=== PATIENT | female | born 1935 | race African-American/Black ===

== ENCOUNTER 2018-02-16 10:20 | Inpatient (IN) | payer MEDICARE, OTHER ==
[~2018-02-16] VITALS: Ht 167.6 cm; Wt 69.6 kg
[~2018-02-16 10:20] MED LIST: AMLO5TAB4 PO; AP25 PO; ATEN100T; CLON0.1T PO; DOC Q LACE; FOLI-43; GABA-290 PO; GABA-529 PO; LOSA50TA3 PO; METH2.5T PO; METH500T PO; POTA10CA42 PO; PROT40 PO; ZET10 PO
[2018-02-16] MEDS ORDERED: NITROGLYCERIN OINT 1GM/INCH UDPKT TD ONE (11:00)
[2018-02-16 11:55] LABS: BASOPHILS % 0.3 % (0.0-2.0); EOSINOPHILS % 0.1 % (0.0-5.0); HEMATOCRIT. 36.2 % (36.0-48.0); HEMOGLOBIN. 11.4 g/dL (12.0-16.0); LYMPHOCYTES % 23.2 % (20.0-50.0); MEAN CORPUSCULAR HEMOGLOBIN 27.2 pg (28.0-32.0); MEAN CORPUSCULAR VOLUME 86.3 fL (81.0-99.0); MEAN PLATELET VOLUME 7.7 fl (7.4-10.4); MONOCYTES % 4.6 % (2.0-8.0); NEUTROPHILS % 71.8 % (40.0-76.0); PLATELET 364 x1000/uL (130-400); RED BLOOD CELL COUNT 4.19 mill/uL (4.2-5.4); RED CELL DISTRIBUTION WIDTH 20.2 % (11.6-14.6)
[2018-02-16 11:58] LABS: PROTHROMBIN TIME 10.4 sec (9.1-11.1)
[2018-02-16 12:02] LABS: CHLORIDE 100 mEq/L (98-107)
[2018-02-16] MEDS ORDERED: CLONIDINE 0.1MG TABLET PO PRN ×2 (13:00→14:00)
[2018-02-16] MEDS ORDERED: ACETAMINOPHEN 325MG TABLET PO ONE (13:15)
[2018-02-16 13:25] LABS: CREATINE KINASE MB FRACTION 2.9 ng/mL (0.5-3.6)
[2018-02-16] MEDS: LOSARTAN POTASSIUM 100 MG TABLET PO SCH (14:07)
[2018-02-16] MEDS: MORPHINE SULFATE 4 MG/ML CPJ (NOT FOR IM USE) IV PRN (15:41)
[2018-02-16] MEDS ORDERED: CLONIDINE 0.2MG TABLET PO PRN (17:15)
[2018-02-16] MEDS: HYDROCODONE/ACETAMINOPHEN 5/325MG TABLET PO PRN (17:25)
[2018-02-16] MEDS ORDERED: HYDRALAZINE 20MG/ML VIAL IV PRN (17:30)
[2018-02-16 20:00] VITALS: BP_SYST 137; BP_SYST 169; BP_DIAS 55; BP_DIAS 88
[2018-02-16] MEDS: NITROGLYCERIN OINT 1GM/INCH UDPKT TD SCH (21:46)
[2018-02-16] MEDS: AMLODIPINE 5MG TABLET PO SCH (21:47)
[2018-02-17] VITALS: BP 130/62
[2018-02-17] MEDS: HYDROCODONE/ACETAMINOPHEN 5/325MG TABLET PO PRN ×4 (00:40→21:07)
[2018-02-17] MEDS: NITROGLYCERIN OINT 1GM/INCH UDPKT TD SCH ×3 (05:23→21:05)
[2018-02-17 06:00] VITALS: BP 90/51
[2018-02-17 06:56] LABS: BASOPHILS % 0.8 % (0.0-2.0); EOSINOPHILS % 0.3 % (0.0-5.0); HEMATOCRIT. 33.8 % (36.0-48.0); HEMOGLOBIN. 10.9 g/dL (12.0-16.0); MEAN CORPUSCULAR HEMOGLOBIN 27.7 pg (28.0-32.0); MEAN PLATELET VOLUME 7.8 fl (7.4-10.4); MONOCYTES % 5.6 % (2.0-8.0); NEUTROPHILS % 66.3 % (40.0-76.0); PLATELET 359 x1000/uL (130-400); RED BLOOD CELL COUNT 3.93 mill/uL (4.2-5.4); RED CELL DISTRIBUTION WIDTH 19.8 % (11.6-14.6)
[2018-02-17 07:06] LABS: CHLORIDE 100 mEq/L (98-107)
[2018-02-17 07:17] LABS: CREATINE KINASE 61 IU/L (26-192); CREATINE KINASE MB FRACTION 2.3 ng/mL (0.5-3.6); HDL CHOLESTEROL 64 mg/dL (40-59); LDL CHOLESTEROL 98 mg/dL (5-100)
[2018-02-17 08:00] VITALS: BP 178/91
[2018-02-17] MEDS ORDERED: FUROSEMIDE 40MG/4ML VIAL IVP SCH (09:00)
[2018-02-17] MEDS: LOSARTAN POTASSIUM 100 MG TABLET PO SCH (10:11)
[2018-02-17] MEDS: AMLODIPINE 5MG TABLET PO SCH ×2 (10:11→21:07)
[2018-02-17] MEDS: MORPHINE SULFATE 4 MG/ML CPJ (NOT FOR IM USE) IV PRN (11:36)
[2018-02-17 12:00] VITALS: BP 145/73
[2018-02-17] MEDS ORDERED: SUMATRIPTAN SUCCINATE 6MG/0.5ML VIAL SUBCUT NR (14:00)
[2018-02-17] MEDS ORDERED: MORPHINE SULFATE 4 MG/ML CPJ (NOT FOR IM USE) IV PRN (14:30)
[2018-02-17] MEDS: HYDRALAZINE HCL 50MG TABLET PO SCH ×2 (14:38→21:06)
[2018-02-17 16:00] VITALS: BP 133/66
[2018-02-17] MEDS: FUROSEMIDE 40MG/4ML VIAL IVP SCH (17:34)
[2018-02-17 20:00] VITALS: BP 117/58
[2018-02-17] MEDS: GABAPENTIN 300MG CAPSULE PO SCH (21:10)
[2018-02-18] VITALS (8 sets, daily range): BP systolic 96–118; BP diastolic 51–74
[2018-02-18] MEDS: HYDRALAZINE HCL 50MG TABLET PO SCH ×3 (05:24→20:14)
[2018-02-18] MEDS: FUROSEMIDE 40MG/4ML VIAL IVP SCH ×2 (05:24→17:49)
[2018-02-18] MEDS: NITROGLYCERIN OINT 1GM/INCH UDPKT TD SCH ×3 (05:24→20:14)
[2018-02-18] MEDS: GABAPENTIN 300MG CAPSULE PO SCH ×3 (05:30→20:14)
[2018-02-18] MEDS: ACETAMINOPHEN 325MG TABLET PO PRN (05:41)
[2018-02-18 07:49] LABS: BASOPHILS % 0.5 % (0.0-2.0); EOSINOPHILS % 0.1 % (0.0-5.0); HEMATOCRIT. 37.8 % (36.0-48.0); HEMOGLOBIN. 12.2 g/dL (12.0-16.0); LYMPHOCYTES % 18.4 % (20.0-50.0); MEAN CORPUSCULAR HEMOGLOBIN 27.3 pg (28.0-32.0); MEAN PLATELET VOLUME 7.5 fl (7.4-10.4); MONOCYTES % 8.2 % (2.0-8.0); NEUTROPHILS % 72.8 % (40.0-76.0); PLATELET 428 x1000/uL (130-400); RED BLOOD CELL COUNT 4.45 mill/uL (4.2-5.4)
[2018-02-18 07:59] LABS: CHLORIDE 96 mEq/L (98-107)
[2018-02-18] MEDS: LOSARTAN POTASSIUM 100 MG TABLET PO SCH (08:21)
[2018-02-18] MEDS: AMLODIPINE 5MG TABLET PO SCH ×2 (08:21→20:14)
[2018-02-18] MEDS: HYDROCODONE/ACETAMINOPHEN 5/325MG TABLET PO PRN (10:18)
[2018-02-18] MEDS ORDERED: POTASSIUM CHLORIDE 20MEQ TABLET SR PO NR (12:00)
[2018-02-18] MEDS ORDERED: MAGNESIUM 1 G PREMIX 100 ML IV NR (13:00)
[2018-02-19] VITALS (8 sets, daily range): BP systolic 90–152; BP diastolic 44–76
[2018-02-19] MEDS: GABAPENTIN 300MG CAPSULE PO SCH ×3 (05:19→21:32)
[2018-02-19] MEDS: HYDRALAZINE HCL 50MG TABLET PO SCH ×3 (05:20→21:30)
[2018-02-19] MEDS: ACETAMINOPHEN 325MG TABLET PO PRN ×2 (05:20→11:46)
[2018-02-19] MEDS: NITROGLYCERIN OINT 1GM/INCH UDPKT TD SCH ×3 (05:21→21:30)
[2018-02-19] MEDS: FUROSEMIDE 40MG/4ML VIAL IVP SCH ×2 (05:23→16:52)
[2018-02-19 07:56] LABS: BASOPHILS % 0.4 % (0.0-2.0); EOSINOPHILS % 0.3 % (0.0-5.0); HEMATOCRIT. 37.1 % (36.0-48.0); HEMOGLOBIN. 12.3 g/dL (12.0-16.0); LYMPHOCYTES % 19.8 % (20.0-50.0); MEAN CORPUSCULAR VOLUME 84.7 fL (81.0-99.0); MEAN PLATELET VOLUME 7.6 fl (7.4-10.4); MONOCYTES % 9.5 % (2.0-8.0); PLATELET 433 x1000/uL (130-400); RED BLOOD CELL COUNT 4.38 mill/uL (4.2-5.4); RED CELL DISTRIBUTION WIDTH 20.1 % (11.6-14.6)
[2018-02-19] MEDS: LOSARTAN POTASSIUM 100 MG TABLET PO SCH (08:29)
[2018-02-19] MEDS: AMLODIPINE 5MG TABLET PO SCH ×2 (08:29→21:29)
[2018-02-19 08:56] LABS: CHLORIDE 97 mEq/L (98-107)
[2018-02-19] MEDS: HYDROCODONE/ACETAMINOPHEN 5/325MG TABLET PO PRN ×2 (16:13→21:29)
[2018-02-19] MEDS ORDERED: CELECOXIB 200MG CAPSULE PO NR (17:00)
[2018-02-20] VITALS: BP 116/59
[2018-02-20] MEDS: HYDROCODONE/ACETAMINOPHEN 5/325MG TABLET PO PRN ×2 (02:43→10:24)
[2018-02-20 04:00] VITALS: BP 107/45
[2018-02-20] MEDS: NITROGLYCERIN OINT 1GM/INCH UDPKT TD SCH ×2 (05:23→14:00)
[2018-02-20] MEDS: HYDRALAZINE HCL 50MG TABLET PO SCH ×2 (05:23→14:00)
[2018-02-20] MEDS: GABAPENTIN 300MG CAPSULE PO SCH ×2 (06:21→14:00)
[2018-02-20] MEDS: FUROSEMIDE 40MG/4ML VIAL IVP SCH ×2 (06:55→17:15)
[2018-02-20 07:55] LABS: CHLORIDE 96 mEq/L (98-107)
[2018-02-20 08:00] VITALS: BP 110/60
[2018-02-20] MEDS: AMLODIPINE 5MG TABLET PO SCH (08:32)
[2018-02-20] MEDS: LOSARTAN POTASSIUM 100 MG TABLET PO SCH (08:32)
[2018-02-20 12:00] VITALS: BP 102/56
[2018-02-20 15:47] VITALS: BP 100/57
[2018-02-20 16:00] VITALS: BP 100/59
== END 2018-02-20 17:40 | disposition home or self-care (01) | DRG 291 ==
LOC: ER 10:20 → 7WST 12:51 → ENRESERV 15:45 → CANBEDREQ 16:40
PROVIDERS: ADMIT Internal Medicine; ATTEND Internal Medicine
DX: I11.0 Hypertensive heart disease with heart failure (principal); I50.31 Acute diastolic (congestive) heart failure; E44.1 Mild protein-calorie malnutrition; M94.0 Chondrocostal junction syndrome [Tietze]; I16.0 Hypertensive urgency; E78.00 Pure hypercholesterolemia, unspecified; E78.5 Hyperlipidemia, unspecified; I49.5 Sick sinus syndrome; I25.10 Atherosclerotic heart disease of native coronary artery without angina pectoris; M06.9 Rheumatoid arthritis, unspecified; Z95.0 Presence of cardiac pacemaker; Z79.82 Long term (current) use of aspirin; Z68.24 Body mass index [BMI] 24.0-24.9, adult; Z88.1 Allergy status to other antibiotic agents; Z88.6 Allergy status to analgesic agent; Z95.1 Presence of aortocoronary bypass graft; Z79.899 Other long term (current) drug therapy
CPT/HCPCS: 36415; 70450; 71045; 80048; 80053; 80061; 82550; 82553; 83735; 83880; 84443; 84484; 85025; 85379; 85610; 93005; 93306; 93970; 99285; J1940; J2270; J3030; J3475

== ENCOUNTER 2019-03-18 14:35 | Inpatient (IN) | payer MEDICARE, OTHER ==
[~2019-03-18] VITALS: Ht 167.6 cm; Wt 68.0 kg
[~2019-03-18 14:35] MED LIST changes: -DOC Q LACE; +EZET10TA13 PO; -GABA-529 PO; -PROT40 PO; -ZET10 PO
[2019-03-18 16:50] LABS: BASOPHILS % 0.6 % (0.0-2.0); EOSINOPHILS % 0.1 % (0.0-5.0); HEMATOCRIT. 31.9 % (36.0-48.0); HEMOGLOBIN. 10.4 g/dL (12.0-16.0); LYMPHOCYTES % 26.9 % (20.0-50.0); MEAN CORPUSCULAR HEMOGLOBIN 26.9 pg (28.0-32.0); MEAN CORPUSCULAR VOLUME 82.5 fL (81.0-99.0); MEAN PLATELET VOLUME 7.9 fl (7.4-10.4); NEUTROPHILS % 61.4 % (40.0-76.0); PLATELET 441 x1000/uL (130-400); RED BLOOD CELL COUNT 3.86 mill/uL (4.2-5.4); RED CELL DISTRIBUTION WIDTH 15.3 % (11.6-14.6)
[2019-03-18 16:57] LABS: CHLORIDE 98 mEq/L (98-107)
[2019-03-18] MEDS ORDERED: FUROSEMIDE 20MG/2ML VIAL IVP ONE (17:15)
[2019-03-18] MEDS ORDERED: POTASSIUM CHLORIDE 20MEQ TABLET SR PO ONE (17:15)
[2019-03-18] MEDS ORDERED: DOCUSATE SODIUM 100MG CAPSULE PO PRN (17:30)
[2019-03-18] MEDS ORDERED: HYDRALAZINE HCL 25MG TABLET PO SCH ×2 (17:30→20:41)
[2019-03-18] MEDS ORDERED: LORAZEPAM 0.5MG TABLET PO PRN (17:30)
[2019-03-18] MEDS ORDERED: CLONIDINE 0.1MG TABLET PO PRN (17:30)
[2019-03-18] MEDS ORDERED: ONDANSETRON HCL 4MG/2ML INJ IV PRN (17:30)
[2019-03-18] MEDS: AMLODIPINE 5MG TABLET PO SCH (18:00)
[2019-03-18 18:23] LABS: CLARITY URINE CLEAR (CLEAR); COLOR URINE YELLOW (YELLOW); KETONES URINE TRACE (NEGATIVE); LEUKOCYTE ESTERASE URINE 1+ (NEGATIVE); NITRITE URINE NEGATIVE (NEGATIVE); OCCULT BLOOD URINE NEGATIVE (NEGATIVE); PROTEIN URINE TRACE (NEGATIVE)
[2019-03-18 19:01] LABS: *AMPHETAMINES SCREEN URINE NEGATIVE (NEGATIVE); *BARBITURATES SCREEN URINE NEGATIVE (NEGATIVE); *BENZODIAZEPINES SCREEN URINE NEGATIVE (NEGATIVE)
[2019-03-18 19:02] LABS: *COCAINE SCREEN URINE NEGATIVE (NEGATIVE); CANNABINOID URINE SCREEN NEGATIVE (NEGATIVE); METHADONE URINE SCREEN NEGATIVE (NEGATIVE); OPIATES URINE SCREEN PRESUMTIVE POSITIVE (NEGATIVE); PHENCYCLIDINE URINE SCREEN NEGATIVE (NEGATIVE)
[2019-03-18] MEDS: HYDROCODONE/ACETAMINOPHEN 5/325MG TABLET PO PRN (21:20)
[2019-03-18 22:30] VITALS: BP 144/60
[2019-03-18 23:00] VITALS: BP 144/60
[2019-03-19] MEDS: ACETAMINOPHEN 325MG TABLET PO PRN ×2 (00:02→12:24)
[2019-03-19 00:42] VITALS: BP 129/60
[2019-03-19] MEDS: HYDROCODONE/ACETAMINOPHEN 5/325MG TABLET PO PRN ×4 (01:31→18:39)
[2019-03-19 04:00] VITALS: BP 138/54
[2019-03-19 06:43] LABS: BASOPHILS % 0.5 % (0.0-2.0); EOSINOPHILS % 0.5 % (0.0-5.0); HEMATOCRIT. 29.3 % (36.0-48.0); HEMOGLOBIN. 9.6 g/dL (12.0-16.0); LYMPHOCYTES % 33.3 % (20.0-50.0); MEAN CORPUSCULAR HEMOGLOBIN 26.9 pg (28.0-32.0); MEAN CORPUSCULAR VOLUME 82.4 fL (81.0-99.0); MEAN PLATELET VOLUME 8.3 fl (7.4-10.4); MONOCYTES % 14.2 % (2.0-8.0); NEUTROPHILS % 51.5 % (40.0-76.0); PLATELET 378 x1000/uL (130-400); RED BLOOD CELL COUNT 3.55 mill/uL (4.2-5.4); RED CELL DISTRIBUTION WIDTH 15.5 % (11.6-14.6)
[2019-03-19 07:11] LABS: CHLORIDE 101 mEq/L (98-107)
[2019-03-19 08:00] VITALS: BP 133/47
[2019-03-19] MEDS: HYDRALAZINE HCL 25MG TABLET PO SCH ×2 (08:36→21:00)
[2019-03-19] MEDS: FOLIC ACID 1MG TABLET PO SCH (08:41)
[2019-03-19] MEDS: LOSARTAN POTASSIUM 50 MG TABLET PO SCH (08:41)
[2019-03-19] MEDS: EZETIMIBE 10MG TABLET PO SCH (08:41)
[2019-03-19] MEDS: AMLODIPINE 5MG TABLET PO SCH (08:42)
[2019-03-19] MEDS ORDERED: FUROSEMIDE 40MG/4ML VIAL IV SCH (09:00)
[2019-03-19] MEDS ORDERED: METHOTREXATE SODIUM 2 . 5MG TABLET PO SCH ×3 (10:15→17:30)
[2019-03-19 12:00] VITALS: BP 112/47
[2019-03-19] MEDS: FUROSEMIDE 40MG/4ML VIAL IV SCH ×2 (15:10→17:42)
[2019-03-19 16:00] VITALS: BP 122/47
[2019-03-19] MEDS: MORPHINE SULFATE 2 MG/ML CPJ (NOT FOR IM USE) IV PRN ×2 (16:06→21:49)
[2019-03-19] MEDS: CLONIDINE 0.1MG TABLET PO SCH (16:07)
[2019-03-19] MEDS: POTASSIUM CHLORIDE 20MEQ TABLET SR PO SCH (16:07)
[2019-03-19] MEDS: METOPROLOL TARTRATE 25MG TABLET PO SCH (21:00)
[2019-03-20] VITALS (11 sets, daily range): BP systolic 114–144; BP diastolic 42–86
[2019-03-20] MEDS: HYDROCODONE/ACETAMINOPHEN 5/325MG TABLET PO PRN ×2 (01:33→08:37)
[2019-03-20] MEDS: MORPHINE SULFATE 2 MG/ML CPJ (NOT FOR IM USE) IV PRN ×3 (05:56→19:51)
[2019-03-20 06:32] LABS: BASOPHILS % 0.7 % (0.0-2.0); EOSINOPHILS % 0.7 % (0.0-5.0); HEMOGLOBIN. 10.2 g/dL (12.0-16.0); LYMPHOCYTES % 33.7 % (20.0-50.0); MEAN CORPUSCULAR HEMOGLOBIN 26.9 pg (28.0-32.0); MEAN CORPUSCULAR VOLUME 81.9 fL (81.0-99.0); MEAN PLATELET VOLUME 8.1 fl (7.4-10.4); MONOCYTES % 14.8 % (2.0-8.0); NEUTROPHILS % 50.1 % (40.0-76.0); PLATELET 383 x1000/uL (130-400); RED BLOOD CELL COUNT 3.78 mill/uL (4.2-5.4)
[2019-03-20 06:41] LABS: CHLORIDE 98 mEq/L (98-107)
[2019-03-20 06:54] LABS: TOTAL IRON BINDING CAPACITY 378 ug/dL (250-450)
[2019-03-20] MEDS: FUROSEMIDE 40MG/4ML VIAL IV SCH ×2 (06:56→17:34)
[2019-03-20 07:08] LABS: VITAMIN B12 SERUM 425 pg/mL (211-911)
[2019-03-20] MEDS: EZETIMIBE 10MG TABLET PO SCH (08:35)
[2019-03-20] MEDS: AMLODIPINE 5MG TABLET PO SCH (08:35)
[2019-03-20] MEDS: POTASSIUM CHLORIDE 20MEQ TABLET SR PO SCH ×2 (08:35→17:34)
[2019-03-20] MEDS: FOLIC ACID 1MG TABLET PO SCH (08:36)
[2019-03-20 08:40] LABS: FERRITIN 14 ng/mL (10-291)
[2019-03-20] MEDS: HYDRALAZINE HCL 25MG TABLET PO SCH ×2 (09:00→20:44)
[2019-03-20] MEDS: LOSARTAN POTASSIUM 50 MG TABLET PO SCH (09:00)
[2019-03-20] MEDS: METOPROLOL TARTRATE 25MG TABLET PO SCH (09:00)
[2019-03-20] MEDS: IPRATROPIUM/ALBUTEROL 0.5-3(2.5)MG/3ML NEB HHN PRN (09:48)
[2019-03-20] MEDS ORDERED: SODIUM CHLORIDE 0.45% 1,000 ML IV SCH (11:30)
[2019-03-20] MEDS: NEBIVOLOL HCL 5 MG TABLET PO SCH ×2 (11:49→20:44)
[2019-03-20] MEDS ORDERED: FENTANYL CITRATE/PF 50MCG/ML 2ML VIAL ONE (12:53)
[2019-03-20] MEDS ORDERED: IODIXANOL 320MG/ML 100 ML BOTTLE IV ONE ×2 (12:53→13:36)
[2019-03-20] MEDS ORDERED: MIDAZOLAM HCL 2 MG/2 ML VIAL ONE (12:53)
[2019-03-20] MEDS ORDERED: LIDOCAINE HCL 1% 20ML VIAL (Pyxis) INJ ONE (12:54)
[2019-03-20] MEDS ORDERED: ASPIRIN/SOD BICARB/CITRIC ACID 324MG TAB EFF ONE (12:58)
[2019-03-20] MEDS ORDERED: HEPARIN SODIUM 1,000 UNIT/1ML VIAL IV ONE (13:00)
[2019-03-20] MEDS ORDERED: NITROGLYCERIN 50MCG/ML 10ML VIAL (CATH LAB) IV ONE (13:00)
[2019-03-20] MEDS ORDERED: NICARDIPINE 100MCG/ML 10ML VIAL (CATH LAB) IV ONE (13:00)
[2019-03-20] MEDS ORDERED: IOHEXOL-300 100 ML BOTTLE ONE (13:37)
[2019-03-20] MEDS ORDERED: CLOPIDOGREL 75MG TABLET PO ONE (14:30)
[2019-03-20] MEDS ORDERED: ATROPINE SULFATE 1MG/10ML SYR IV PRN (14:30)
[2019-03-20] MEDS ORDERED: MORPHINE SULFATE 2 MG/ML CPJ (NOT FOR IM USE) IV PRN (14:30)
[2019-03-20] MEDS ORDERED: ACETAMINOPHEN 325MG TABLET PO PRN (14:30)
[2019-03-20] MEDS ORDERED: ONDANSETRON HCL 4MG/2ML INJ IV PRN (14:30)
[2019-03-20] MEDS ORDERED: SODIUM CHLORIDE 0.45% 1,000 ML IV ONE (14:30)
[2019-03-20] MEDS ORDERED: CLOPIDOGREL 75MG TABLET ONE (14:39)
[2019-03-20] MEDS: CLONIDINE 0.1MG TABLET PO SCH (17:34)
[2019-03-21] VITALS (12 sets, daily range): BP systolic 100–124; BP diastolic 40–77
[2019-03-21] MEDS: HYDROCODONE/ACETAMINOPHEN 5/325MG TABLET PO PRN ×3 (01:51→21:45)
[2019-03-21] MEDS: FUROSEMIDE 40MG/4ML VIAL IV SCH (06:33)
[2019-03-21 07:01] LABS: CHLORIDE 98 mEq/L (98-107)
[2019-03-21 07:06] LABS: BASOPHILS % 0.2 % (0.0-2.0); EOSINOPHILS % 0.3 % (0.0-5.0); HEMATOCRIT. 30.5 % (36.0-48.0); LYMPHOCYTES % 19.9 % (20.0-50.0); MEAN CORPUSCULAR HEMOGLOBIN 26.8 pg (28.0-32.0); MEAN CORPUSCULAR VOLUME 81.9 fL (81.0-99.0); MEAN PLATELET VOLUME 8.2 fl (7.4-10.4); NEUTROPHILS % 68.6 % (40.0-76.0); PLATELET 385 x1000/uL (130-400); RED BLOOD CELL COUNT 3.73 mill/uL (4.2-5.4); RED CELL DISTRIBUTION WIDTH 14.9 % (11.6-14.6)
[2019-03-21 07:11] LABS: HDL CHOLESTEROL 63 mg/dL (40-59); LDL CHOLESTEROL 71 mg/dL (5-100)
[2019-03-21] MEDS ORDERED: ASPIRIN 325MG TABLET PO SCH (09:00)
[2019-03-21] MEDS: EZETIMIBE 10MG TABLET PO SCH (09:13)
[2019-03-21] MEDS: NEBIVOLOL HCL 5 MG TABLET PO SCH ×2 (09:14→21:44)
[2019-03-21] MEDS: CLOPIDOGREL 75MG TABLET PO SCH (09:14)
[2019-03-21] MEDS: FOLIC ACID 1MG TABLET PO SCH (09:14)
[2019-03-21] MEDS: AMLODIPINE 5MG TABLET PO SCH (09:14)
[2019-03-21] MEDS: POTASSIUM CHLORIDE 20MEQ TABLET SR PO SCH (09:14)
[2019-03-21] MEDS: LOSARTAN POTASSIUM 50 MG TABLET PO SCH (09:14)
[2019-03-21] MEDS: HYDRALAZINE HCL 25MG TABLET PO SCH ×2 (09:15→21:00)
[2019-03-21 11:19] LABS: INR 1.1; PARTIAL THROMBOPLASTIN TIME 27.8 sec (23.4-31.0); PROTHROMBIN TIME 11.1 sec (9.6-11.0)
[2019-03-21] MEDS: IPRATROPIUM/ALBUTEROL 0.5-3(2.5)MG/3ML NEB HHN PRN ×2 (13:43→15:56)
[2019-03-21] MEDS: CLONIDINE 0.1MG TABLET PO SCH (17:39)
[2019-03-22] VITALS (11 sets, daily range): BP systolic 109–133; BP diastolic 48–68
[2019-03-22 06:45] LABS: BASOPHILS % 0.5 % (0.0-2.0); EOSINOPHILS % 0.6 % (0.0-5.0); HEMATOCRIT. 30.1 % (36.0-48.0); HEMOGLOBIN. 9.7 g/dL (12.0-16.0); LYMPHOCYTES % 31.3 % (20.0-50.0); MEAN CORPUSCULAR HEMOGLOBIN 26.2 pg (28.0-32.0); MEAN CORPUSCULAR VOLUME 81.2 fL (81.0-99.0); MEAN PLATELET VOLUME 8.3 fl (7.4-10.4); MONOCYTES % 4.8 % (2.0-8.0); NEUTROPHILS % 62.8 % (40.0-76.0); PLATELET 399 x1000/uL (130-400); RED CELL DISTRIBUTION WIDTH 15.4 % (11.6-14.6)
[2019-03-22 06:55] LABS: CHLORIDE 97 mEq/L (98-107)
[2019-03-22] MEDS: ASPIRIN 81MG EC TABLET PO SCH (08:58)
[2019-03-22] MEDS: LOSARTAN POTASSIUM 50 MG TABLET PO SCH (08:59)
[2019-03-22] MEDS: FOLIC ACID 1MG TABLET PO SCH (08:59)
[2019-03-22] MEDS: HYDRALAZINE HCL 25MG TABLET PO SCH ×2 (08:59→21:02)
[2019-03-22] MEDS: NEBIVOLOL HCL 5 MG TABLET PO SCH ×2 (09:00→21:05)
[2019-03-22] MEDS: AMLODIPINE 5MG TABLET PO SCH (09:00)
[2019-03-22] MEDS: CLOPIDOGREL 75MG TABLET PO SCH (09:00)
[2019-03-22] MEDS: EZETIMIBE 10MG TABLET PO SCH (09:00)
[2019-03-22] MEDS: HYDROCODONE/ACETAMINOPHEN 5/325MG TABLET PO PRN (13:49)
[2019-03-23] VITALS (10 sets, daily range): BP systolic 110–146; BP diastolic 42–67
[2019-03-23] MEDS: HYDROCODONE/ACETAMINOPHEN 5/325MG TABLET PO PRN (04:16)
[2019-03-23 07:18] LABS: BASOPHILS % 0.3 % (0.0-2.0); EOSINOPHILS % 0.1 % (0.0-5.0); HEMATOCRIT. 29.7 % (36.0-48.0); HEMOGLOBIN. 9.7 g/dL (12.0-16.0); LYMPHOCYTES % 24.6 % (20.0-50.0); MEAN CORPUSCULAR HEMOGLOBIN 26.6 pg (28.0-32.0); MEAN CORPUSCULAR VOLUME 81.6 fL (81.0-99.0); MEAN PLATELET VOLUME 8.2 fl (7.4-10.4); MONOCYTES % 4.1 % (2.0-8.0); NEUTROPHILS % 70.9 % (40.0-76.0); PLATELET 364 x1000/uL (130-400); RED BLOOD CELL COUNT 3.65 mill/uL (4.2-5.4); RED CELL DISTRIBUTION WIDTH 15.3 % (11.6-14.6)
[2019-03-23 07:27] LABS: CHLORIDE 95 mEq/L (98-107)
[2019-03-23] MEDS: ASPIRIN 81MG EC TABLET PO SCH (08:19)
[2019-03-23] MEDS: CLOPIDOGREL 75MG TABLET PO SCH (08:20)
[2019-03-23] MEDS: HYDRALAZINE HCL 25MG TABLET PO SCH (08:20)
[2019-03-23] MEDS: EZETIMIBE 10MG TABLET PO SCH (08:20)
[2019-03-23] MEDS: LOSARTAN POTASSIUM 50 MG TABLET PO SCH (08:20)
[2019-03-23] MEDS: AMLODIPINE 5MG TABLET PO SCH (08:20)
[2019-03-23] MEDS: FOLIC ACID 1MG TABLET PO SCH (08:20)
[2019-03-23] MEDS: NEBIVOLOL HCL 5 MG TABLET PO SCH (08:21)
[2019-03-23] MEDS ORDERED: NITROGLYCERIN 0.4MG TABLET SL SL SCH (10:30)
[2019-03-27] MEDS ORDERED: METH2.5T MT (16:52)
[2019-03-27] MEDS ORDERED: EZET10TA13 MT (16:53)
== END 2019-03-23 17:19 | DRG 246 ==
LOC: ER 14:46 → 6WST 17:13 → EDBEDREQ 17:16 → EDBEDREQTM 17:16 → ENRESERV 18:56 → 3WST 03-20 14:58
PROVIDERS: ADMIT Internal Medicine; ATTEND Internal Medicine
PROC: 027034Z Dilation of Coronary Artery, One Artery with Drug-eluting Intraluminal Device, Percutaneous Approach (ICD-10-PCS; principal; 2019-03-20)
PROC: 4A023N7 Measurement of Cardiac Sampling and Pressure, Left Heart, Percutaneous Approach (ICD-10-PCS; 2019-03-20)
PROC: B2111ZZ Fluoroscopy of Multiple Coronary Arteries using Low Osmolar Contrast (ICD-10-PCS; 2019-03-20)
PROC: B2181ZZ Fluoroscopy of Left Internal Mammary Bypass Graft using Low Osmolar Contrast (ICD-10-PCS; 2019-03-20)
PROC: B2131ZZ Fluoroscopy of Multiple Coronary Artery Bypass Grafts using Low Osmolar Contrast (ICD-10-PCS; 2019-03-20)
PROC: 4A033BC Measurement of Arterial Pressure, Coronary, Percutaneous Approach (ICD-10-PCS; 2019-03-20)
PROC: 4B02XSZ Measurement of Cardiac Pacemaker, External Approach (ICD-10-PCS; 2019-03-20)
DX: T82.855A Stenosis of coronary artery stent, initial encounter (principal); I50.41 Acute combined systolic (congestive) and diastolic (congestive) heart failure; D64.9 Anemia, unspecified; D72.821 Monocytosis (symptomatic); E78.00 Pure hypercholesterolemia, unspecified; E87.6 Hypokalemia; I11.0 Hypertensive heart disease with heart failure; E78.5 Hyperlipidemia, unspecified; I25.82 Chronic total occlusion of coronary artery; I49.5 Sick sinus syndrome; G62.9 Polyneuropathy, unspecified; Y84.0 Cardiac catheterization as the cause of abnormal reaction of the patient, or of later complication, without mention of misadventure at the time of the procedure; R82.71 Bacteriuria; I25.10 Atherosclerotic heart disease of native coronary artery without angina pectoris; M06.9 Rheumatoid arthritis, unspecified; R04.0 Epistaxis; Z79.02 Long term (current) use of antithrombotics/antiplatelets; Z95.1 Presence of aortocoronary bypass graft; Z95.0 Presence of cardiac pacemaker; Z79.899 Other long term (current) drug therapy; Z88.8 Allergy status to other drugs, medicaments and biological substances; Y92.89 Other specified places as the place of occurrence of the external cause
CPT/HCPCS: 36415; 71045; 78582; 80048; 80061; 80305; 81003; 82607; 82728; 83540; 83550; 83735; 83880; 84484; 85379; 92928; 93005; 93459; 93571; 93970; 94640; 96374; 97110; 97162; 99285; A9558; C1725; C1769; C1874; C1887; C1893; J1644; J1940; J2250; J2270; J3010; J3490; J7620; J8610; Q9967

== ENCOUNTER 2019-05-13 06:16 | Inpatient (IN) | payer MEDICARE, OTHER ==
[~2019-05-13] VITALS: Ht 167.6 cm; Wt 60.8 kg
[~2019-05-13 06:16] MED LIST changes: -AP25 PO; +ASPI-1160 PO; -ATEN100T; -CLON0.1T PO; +CLOP75TA15 PO; +EZET10TA13 MT; -EZET10TA13 PO; +FURO-151 MT; -GABA-290 PO; -LOSA50TA3 PO; +METH2.5T MT; -METH2.5T PO; -METH500T PO; +NEBI5TAB3 PO; +POTA10CA42 MT; -POTA10CA42 PO
[2019-05-13 09:54] LABS: BASOPHILS % 0.7 % (0.0-2.0); EOSINOPHILS % 0.2 % (0.0-5.0); HEMATOCRIT. 32.8 % (36.0-48.0); HEMOGLOBIN. 10.5 g/dL (12.0-16.0); LYMPHOCYTES % 25.3 % (20.0-50.0); MEAN CORPUSCULAR HEMOGLOBIN 26.8 pg (28.0-32.0); MEAN CORPUSCULAR VOLUME 83.6 fL (81.0-99.0); MONOCYTES % 10.2 % (2.0-8.0); NEUTROPHILS % 63.6 % (40.0-76.0); PLATELET 490 x1000/uL (130-400); RED BLOOD CELL COUNT 3.92 mill/uL (4.2-5.4); RED CELL DISTRIBUTION WIDTH 18.4 % (11.6-14.6)
[2019-05-13 10:02] LABS: CHLORIDE 104 mEq/L (98-107)
[2019-05-13] MEDS ORDERED: FUROSEMIDE 40MG/4ML VIAL IV ONE (10:30)
[2019-05-13] MEDS ORDERED: ASPIRIN 81MG TABLET PO ONE (10:30)
[2019-05-13] MEDS ORDERED: DIPHENHYDRAMINE 50MG/ML VIAL IV PRN (14:45)
[2019-05-13] MEDS ORDERED: CLONIDINE 0.1MG TABLET PO PRN (14:45)
[2019-05-13] MEDS ORDERED: ONDANSETRON HCL 4MG/2ML INJ IV PRN (14:45)
[2019-05-13 15:00] LABS: PHOSPHORUS 3.5 mg/dL (2.5-4.9)
[2019-05-13] MEDS ORDERED: FUROSEMIDE 40MG/4ML VIAL IV NR (19:41)
[2019-05-13] MEDS: LORAZEPAM 2MG/ML CPJ IV PRN (22:20)
[2019-05-13] MEDS: KETOROLAC 30MG/ML VIAL IV PRN (22:20)
[2019-05-14] MEDS ORDERED: TRIA1TAB92 PO (00:41)
[2019-05-14] MEDS ORDERED: CLON0.1T PO (00:41)
[2019-05-14] MEDS ORDERED: FERR-71 PO (00:41)
[2019-05-14] MEDS ORDERED: GABA-290 PO (00:41)
[2019-05-14] MEDS ORDERED: DYR5 GT (00:41)
[2019-05-14 00:48] VITALS: BP 141/55
[2019-05-14] MEDS: KETOROLAC 30MG/ML VIAL IV PRN ×2 (03:11→15:03)
[2019-05-14 04:00] VITALS: BP 135/60
[2019-05-14] MEDS: LORAZEPAM 2MG/ML CPJ IV PRN (04:14)
[2019-05-14 04:45] LABS: BASOPHILS % 0.8 % (0.0-2.0); HEMATOCRIT. 31.6 % (36.0-48.0); HEMOGLOBIN. 10.3 g/dL (12.0-16.0); LYMPHOCYTES % 21.8 % (20.0-50.0); MEAN CORPUSCULAR HEMOGLOBIN 27.2 pg (28.0-32.0); MEAN CORPUSCULAR VOLUME 83.3 fL (81.0-99.0); MEAN PLATELET VOLUME 8.2 fl (7.4-10.4); MONOCYTES % 14.3 % (2.0-8.0); NEUTROPHILS % 63.1 % (40.0-76.0); PLATELET 465 x1000/uL (130-400); RED BLOOD CELL COUNT 3.79 mill/uL (4.2-5.4); RED CELL DISTRIBUTION WIDTH 17.9 % (11.6-14.6)
[2019-05-14 04:51] LABS: CHLORIDE 104 mEq/L (98-107)
[2019-05-14 04:58] LABS: LDL CHOLESTEROL 68 mg/dL (5-100)
[2019-05-14 04:59] LABS: HDL CHOLESTEROL 60 mg/dL (40-59)
[2019-05-14 08:00] VITALS: BP 153/69
[2019-05-14] MEDS: FUROSEMIDE 40MG/4ML VIAL IV SCH ×2 (08:37→20:45)
[2019-05-14] MEDS: ACETAMINOPHEN 325MG TABLET PO PRN ×2 (08:44→20:45)
[2019-05-14 12:00] VITALS: BP 134/62
[2019-05-14] MEDS: IPRATROPIUM/ALBUTEROL 0.5-3(2.5)MG/3ML NEB HHN PRN ×2 (12:07→20:02)
[2019-05-14 16:00] VITALS: BP 132/60
[2019-05-14] MEDS: CLOPIDOGREL 75MG TABLET PO SCH (17:33)
[2019-05-14] MEDS: NEBIVOLOL HCL 5 MG TABLET PO SCH (17:34)
[2019-05-14] MEDS: ASPIRIN 81MG EC TABLET PO SCH (17:34)
[2019-05-14 20:00] VITALS: BP 103/64
[2019-05-14] MEDS ORDERED: IPRATROPIUM/ALBUTEROL 0.5-3(2.5)MG/3ML NEB HHN PRN (21:17)
[2019-05-14] MEDS ORDERED: PREDNISONE 20MG TABLET PO SCH (21:18)
[2019-05-15] VITALS: BP 111/57
[2019-05-15] MEDS: IPRATROPIUM/ALBUTEROL 0.5-3(2.5)MG/3ML NEB HHN SCH ×6 (01:00→20:47)
[2019-05-15 04:00] VITALS: BP 143/57
[2019-05-15] MEDS: KETOROLAC 30MG/ML VIAL IV PRN ×2 (04:05→20:18)
[2019-05-15] MEDS: GUAIFENESIN 200MG/10ML SUGAR FREE UDC PO PRN ×3 (04:08→21:18)
[2019-05-15 05:38] LABS: BG BASE EXCESS 1.3 mmol/L (-2.0-2.0); BG CARBOXYHEMOGLOBIN 0.3 % (0.5-1.5); BG DEOXYHEMOGLOBIN 1.7 % (0.0-5.0); BG FRACTION INSPIRED OXYGEN 28; BG METHEMOGLOBIN 0.1 % (0.0-1.5); BG OXYGEN SATURATION 98.3 % (92.0-98.5); BG OXYHEMOGLOBIN 97.9 % (94.0-97.0); BG PCO2 27.5 mmHg (35.0-45.0); BG PO2 110.6 mmHg (75.0-100.0); BG SAMPLE SITE RIGHT RADIAL; BG TOTAL HEMOGLOBIN 11.5 g/dL (12.0-18.0); BG VENT MODE NASAL CANNULA
[2019-05-15 07:35] LABS: HEMATOCRIT. 31.2 % (36.0-48.0); HEMOGLOBIN. 10.2 g/dL (12.0-16.0); MEAN CORPUSCULAR HEMOGLOBIN 26.9 pg (28.0-32.0); MEAN CORPUSCULAR VOLUME 82.5 fL (81.0-99.0); MEAN PLATELET VOLUME 8.5 fl (7.4-10.4); PLATELET 448 x1000/uL (130-400); RED BLOOD CELL COUNT 3.79 mill/uL (4.2-5.4); RED CELL DISTRIBUTION WIDTH 17.8 % (11.6-14.6)
[2019-05-15 08:00] VITALS: BP 123/48
[2019-05-15 08:17] LABS: CHLORIDE 102 mEq/L (98-107)
[2019-05-15] MEDS: FUROSEMIDE 40MG/4ML VIAL IV SCH ×2 (08:24→20:18)
[2019-05-15] MEDS: ASPIRIN 81MG EC TABLET PO SCH (08:24)
[2019-05-15] MEDS: CLOPIDOGREL 75MG TABLET PO SCH (08:25)
[2019-05-15] MEDS: NEBIVOLOL HCL 5 MG TABLET PO SCH (08:25)
[2019-05-15] MEDS: PREDNISONE 20MG TABLET PO SCH (08:25)
[2019-05-15 08:28] LABS: PHOSPHORUS 3.9 mg/dL (2.5-4.9)
[2019-05-15 12:00] VITALS: BP 131/50
[2019-05-15 14:13] LABS: PLATELET ESTIMATE INCREASED
[2019-05-15 16:00] VITALS: BP 131/41
[2019-05-15] MEDS ORDERED: AZITHROMYCIN 500 MG TABLET PO NR (20:15)
[2019-05-16] VITALS: BP 136/50
[2019-05-16] MEDS: IPRATROPIUM/ALBUTEROL 0.5-3(2.5)MG/3ML NEB HHN SCH ×6 (00:39→21:06)
[2019-05-16 04:00] VITALS: BP 149/63
[2019-05-16] MEDS: GUAIFENESIN 200MG/10ML SUGAR FREE UDC PO PRN ×2 (04:06→21:46)
[2019-05-16] MEDS: KETOROLAC 30MG/ML VIAL IV PRN ×2 (04:07→21:38)
[2019-05-16 07:49] LABS: BASOPHILS % 0.3 % (0.0-2.0); HEMATOCRIT. 29.5 % (36.0-48.0); HEMOGLOBIN. 9.8 g/dL (12.0-16.0); LYMPHOCYTES % 13.2 % (20.0-50.0); MEAN CORPUSCULAR HEMOGLOBIN 27.4 pg (28.0-32.0); MEAN CORPUSCULAR VOLUME 82.6 fL (81.0-99.0); MEAN PLATELET VOLUME 8.7 fl (7.4-10.4); MONOCYTES % 11.4 % (2.0-8.0); NEUTROPHILS % 75.1 % (40.0-76.0); PLATELET 442 x1000/uL (130-400); RED BLOOD CELL COUNT 3.57 mill/uL (4.2-5.4)
[2019-05-16 07:52] LABS: CHLORIDE 103 mEq/L (98-107)
[2019-05-16 08:00] VITALS: BP 136/54
[2019-05-16] MEDS: NEBIVOLOL HCL 5 MG TABLET PO SCH (09:08)
[2019-05-16] MEDS: AZITHROMYCIN 500 MG TABLET PO SCH (09:08)
[2019-05-16] MEDS: CLOPIDOGREL 75MG TABLET PO SCH (09:09)
[2019-05-16] MEDS: PREDNISONE 20MG TABLET PO SCH (09:09)
[2019-05-16] MEDS: ASPIRIN 81MG EC TABLET PO SCH (09:09)
[2019-05-16] MEDS: FUROSEMIDE 40MG/4ML VIAL IV SCH (09:09)
[2019-05-16] MEDS ORDERED: POTASSIUM CHLORIDE 20MEQ TABLET SR PO NR (10:15)
[2019-05-16 12:00] VITALS: BP 129/52
[2019-05-16] MEDS ORDERED: ALPRAZOLAM 0.25 MG TABLET PO PRN (14:15)
[2019-05-16] MEDS: POTASSIUM CHLORIDE 20MEQ TABLET SR PO SCH (15:05)
[2019-05-16 16:00] VITALS: BP 110/53
[2019-05-16] MEDS: ALPRAZOLAM 0.25 MG TABLET PO SCH (18:11)
[2019-05-16 20:00] VITALS: BP 145/55
[2019-05-16] MEDS: SILDENAFIL CITRATE 20MG TABLET PO SCH (21:37)
[2019-05-17] VITALS: BP 151/64
[2019-05-17] MEDS: IPRATROPIUM/ALBUTEROL 0.5-3(2.5)MG/3ML NEB HHN SCH ×5 (00:33→21:47)
[2019-05-17] MEDS: ACETAMINOPHEN 325MG TABLET PO PRN (02:22)
[2019-05-17 04:00] VITALS: BP 149/70
[2019-05-17] MEDS: SILDENAFIL CITRATE 20MG TABLET PO SCH ×3 (06:51→21:08)
[2019-05-17 07:18] LABS: BASOPHILS % 0.4 % (0.0-2.0); EOSINOPHILS % 0.2 % (0.0-5.0); HEMATOCRIT. 33.2 % (36.0-48.0); HEMOGLOBIN. 10.7 g/dL (12.0-16.0); LYMPHOCYTES % 17.1 % (20.0-50.0); MEAN CORPUSCULAR HEMOGLOBIN 26.9 pg (28.0-32.0); MEAN CORPUSCULAR VOLUME 83.8 fL (81.0-99.0); MEAN PLATELET VOLUME 8.3 fl (7.4-10.4); MONOCYTES % 7.6 % (2.0-8.0); NEUTROPHILS % 74.7 % (40.0-76.0); PLATELET 525 x1000/uL (130-400); RED BLOOD CELL COUNT 3.96 mill/uL (4.2-5.4)
[2019-05-17 08:00] VITALS: BP 96/57
[2019-05-17 08:05] LABS: CHLORIDE 105 mEq/L (98-107)
[2019-05-17] MEDS: NEBIVOLOL HCL 5 MG TABLET PO SCH (09:00)
[2019-05-17] MEDS: AZITHROMYCIN 500 MG TABLET PO SCH (09:06)
[2019-05-17] MEDS: ASPIRIN 81MG EC TABLET PO SCH (09:06)
[2019-05-17] MEDS: PREDNISONE 20MG TABLET PO SCH (09:06)
[2019-05-17] MEDS: FUROSEMIDE 40MG TABLET PO SCH (09:06)
[2019-05-17] MEDS: ALPRAZOLAM 0.25 MG TABLET PO SCH ×2 (09:06→19:09)
[2019-05-17] MEDS: CLOPIDOGREL 75MG TABLET PO SCH (09:06)
[2019-05-17] MEDS: POTASSIUM CHLORIDE 20MEQ TABLET SR PO SCH (09:06)
[2019-05-17 12:02] VITALS: BP 143/61
[2019-05-17 16:20] VITALS: BP 146/53
[2019-05-17 20:00] VITALS: BP 135/51
[2019-05-17] MEDS: KETOROLAC 30MG/ML VIAL IV PRN (21:26)
[2019-05-17] MEDS: LORAZEPAM 2MG/ML CPJ IV PRN (23:20)
[2019-05-18] VITALS: BP 142/55
[2019-05-18] MEDS: IPRATROPIUM/ALBUTEROL 0.5-3(2.5)MG/3ML NEB HHN SCH ×6 (01:35→20:13)
[2019-05-18 04:00] VITALS: BP 142/61
[2019-05-18] MEDS: SILDENAFIL CITRATE 20MG TABLET PO SCH ×3 (05:10→21:58)
[2019-05-18 06:12] LABS: BASOPHILS % 0.1 % (0.0-2.0); EOSINOPHILS % 0.4 % (0.0-5.0); HEMOGLOBIN. 10.4 g/dL (12.0-16.0); LYMPHOCYTES % 18.2 % (20.0-50.0); MEAN CORPUSCULAR HEMOGLOBIN 27.1 pg (28.0-32.0); MEAN CORPUSCULAR VOLUME 83.4 fL (81.0-99.0); MEAN PLATELET VOLUME 8.3 fl (7.4-10.4); MONOCYTES % 8.1 % (2.0-8.0); NEUTROPHILS % 73.2 % (40.0-76.0); PLATELET 527 x1000/uL (130-400); RED BLOOD CELL COUNT 3.84 mill/uL (4.2-5.4); RED CELL DISTRIBUTION WIDTH 17.8 % (11.6-14.6)
[2019-05-18 07:02] LABS: CHLORIDE 105 mEq/L (98-107)
[2019-05-18 08:00] VITALS: BP 111/63
[2019-05-18] MEDS: ALPRAZOLAM 0.25 MG TABLET PO SCH ×2 (09:30→18:10)
[2019-05-18] MEDS: POTASSIUM CHLORIDE 20MEQ TABLET SR PO SCH (09:30)
[2019-05-18] MEDS: ASPIRIN 81MG EC TABLET PO SCH (09:30)
[2019-05-18] MEDS: FUROSEMIDE 40MG TABLET PO SCH (09:30)
[2019-05-18] MEDS: CLOPIDOGREL 75MG TABLET PO SCH (09:30)
[2019-05-18] MEDS: NEBIVOLOL HCL 5 MG TABLET PO SCH (09:31)
[2019-05-18] MEDS: PREDNISONE 20MG TABLET PO SCH (09:33)
[2019-05-18] MEDS: AZITHROMYCIN 500 MG TABLET PO SCH (09:33)
[2019-05-18 12:50] VITALS: BP 149/61
[2019-05-18 16:00] VITALS: BP 105/51
[2019-05-18 20:33] VITALS: BP 147/46
[2019-05-18] MEDS: LORAZEPAM 2MG/ML CPJ IV PRN (21:45)
[2019-05-19] MEDS: IPRATROPIUM/ALBUTEROL 0.5-3(2.5)MG/3ML NEB HHN SCH ×6 (00:10→19:42)
[2019-05-19 00:47] VITALS: BP 152/66
[2019-05-19] MEDS ORDERED: KETOROLAC 30MG/ML VIAL IV PRN ×2 (02:00→06:45)
[2019-05-19] MEDS ORDERED: LORAZEPAM 2MG/ML CPJ IV PRN ×2 (02:00→06:45)
[2019-05-19 03:20] VITALS: BP 155/71
[2019-05-19] MEDS: SILDENAFIL CITRATE 20MG TABLET PO SCH ×3 (06:42→21:43)
[2019-05-19 08:00] VITALS: BP 138/48
[2019-05-19 08:20] LABS: CHLORIDE 104 mEq/L (98-107)
[2019-05-19 08:26] LABS: BASOPHILS % 0.2 % (0.0-2.0); EOSINOPHILS % 0.4 % (0.0-5.0); HEMATOCRIT. 34.1 % (36.0-48.0); HEMOGLOBIN. 10.9 g/dL (12.0-16.0); LYMPHOCYTES % 18.4 % (20.0-50.0); MEAN CORPUSCULAR HEMOGLOBIN 26.6 pg (28.0-32.0); MEAN PLATELET VOLUME 8.5 fl (7.4-10.4); MONOCYTES % 7.8 % (2.0-8.0); NEUTROPHILS % 73.2 % (40.0-76.0); PLATELET 581 x1000/uL (130-400); RED BLOOD CELL COUNT 4.11 mill/uL (4.2-5.4); RED CELL DISTRIBUTION WIDTH 17.9 % (11.6-14.6)
[2019-05-19] MEDS: ALPRAZOLAM 0.25 MG TABLET PO SCH (09:00)
[2019-05-19] MEDS: ASPIRIN 81MG EC TABLET PO SCH ×2 (10:28→17:01)
[2019-05-19] MEDS: CLOPIDOGREL 75MG TABLET PO SCH ×2 (10:29→17:01)
[2019-05-19] MEDS: PREDNISONE 20MG TABLET PO SCH ×2 (10:29→13:22)
[2019-05-19] MEDS: FUROSEMIDE 40MG TABLET PO SCH ×2 (10:30→13:22)
[2019-05-19] MEDS: AZITHROMYCIN 500 MG TABLET PO SCH ×2 (10:30→17:03)
[2019-05-19 12:00] VITALS: BP 143/60
[2019-05-19] MEDS: LIDOCAINE 5% PATCH TOP SCH (14:35)
[2019-05-19 16:00] VITALS: BP 133/58
[2019-05-19] MEDS: NEBIVOLOL HCL 5 MG TABLET PO SCH (17:01)
[2019-05-19] MEDS: POTASSIUM CHLORIDE 20MEQ TABLET SR PO SCH (17:03)
[2019-05-19] MEDS: TRAMADOL 50MG TABLET PO PRN (22:05)
[2019-05-20] MEDS: IPRATROPIUM/ALBUTEROL 0.5-3(2.5)MG/3ML NEB HHN SCH ×6 (00:02→20:40)
[2019-05-20] MEDS: ACETAMINOPHEN 325MG TABLET PO PRN ×4 (01:53→03:55)
[2019-05-20] MEDS: TRAMADOL 50MG TABLET PO PRN ×6 (03:41→19:26)
[2019-05-20] MEDS: SILDENAFIL CITRATE 20MG TABLET PO SCH ×3 (06:10→21:37)
[2019-05-20 06:18] VITALS: BP 100/49
[2019-05-20 08:20] VITALS: BP 152/66
[2019-05-20] MEDS: POTASSIUM CHLORIDE 20MEQ TABLET SR PO SCH (08:47)
[2019-05-20] MEDS: CLOPIDOGREL 75MG TABLET PO SCH (08:47)
[2019-05-20] MEDS: LIDOCAINE 5% PATCH TOP SCH (08:47)
[2019-05-20] MEDS: AZITHROMYCIN 500 MG TABLET PO SCH (08:48)
[2019-05-20] MEDS: ASPIRIN 81MG EC TABLET PO SCH (08:48)
[2019-05-20] MEDS: PREDNISONE 20MG TABLET PO SCH (08:48)
[2019-05-20] MEDS: NEBIVOLOL HCL 5 MG TABLET PO SCH (08:48)
[2019-05-20] MEDS: FUROSEMIDE 40MG TABLET PO SCH (08:48)
[2019-05-20] MEDS ORDERED: GUAIFENESIN 600MG ER TABLET PO SCH (09:00)
[2019-05-20] MEDS ORDERED: GUAIFENESIN/DM 600MG/30MG ER TAB 12HR PO PRN (11:45)
[2019-05-20] MEDS ORDERED: BENZONATATE 100MG CAPSULE PO PRN (11:45)
[2019-05-20 16:00] VITALS: BP 148/60
[2019-05-20 20:43] VITALS: BP 137/57
[2019-05-21] VITALS (7 sets, daily range): BP systolic 134–144; BP diastolic 5–60
[2019-05-21] MEDS: IPRATROPIUM/ALBUTEROL 0.5-3(2.5)MG/3ML NEB HHN SCH ×4 (00:36→22:04)
[2019-05-21] MEDS: SILDENAFIL CITRATE 20MG TABLET PO SCH ×3 (05:10→21:23)
[2019-05-21] MEDS: TRAMADOL 50MG TABLET PO PRN ×2 (06:47→21:23)
[2019-05-21] MEDS: ASPIRIN 81MG EC TABLET PO SCH (08:36)
[2019-05-21] MEDS: CLOPIDOGREL 75MG TABLET PO SCH (08:37)
[2019-05-21] MEDS: PREDNISONE 20MG TABLET PO SCH (08:37)
[2019-05-21] MEDS: AZITHROMYCIN 500 MG TABLET PO SCH (08:37)
[2019-05-21] MEDS: NEBIVOLOL HCL 5 MG TABLET PO SCH (08:37)
[2019-05-21] MEDS: POTASSIUM CHLORIDE 20MEQ TABLET SR PO SCH (08:37)
[2019-05-21] MEDS: FUROSEMIDE 40MG TABLET PO SCH (08:38)
[2019-05-21] MEDS: LIDOCAINE 5% PATCH TOP SCH (08:39)
[2019-05-21] MEDS ORDERED: BENZONATATE 100MG CAPSULE PO PRN (13:30)
[2019-05-21] MEDS ORDERED: REV20 PO (13:54)
[2019-05-21] MEDS ORDERED: FURO40TA5 PO (13:54)
[2019-05-21] MEDS ORDERED: NEBI5TAB3 PO (13:54)
[2019-05-21] MEDS ORDERED: FLUT1BLS ORI (13:54)
[2019-05-21] MEDS ORDERED: ALBUTEROL (0.083%) 2.5MG/3ML NEB HHN PRN (14:00)
[2019-05-21] MEDS ORDERED: UMECLIDINIUM BROMIDE 1 INH BLST.W.DEV IH SCH (15:30)
[2019-05-21] MEDS ORDERED: FLUTICASONE/VILANTEROL 200-25 BLST.W.DEV ORI SCH (15:30)
[2019-05-21] MEDS ORDERED: IPRATROPIUM/ALBUTEROL 0.5-3(2.5)MG/3ML NEB HHN PRN (17:15)
[2019-05-22] VITALS: BP 146/68
[2019-05-22] MEDS: IPRATROPIUM/ALBUTEROL 0.5-3(2.5)MG/3ML NEB HHN SCH ×4 (01:01→13:09)
[2019-05-22] MEDS: TRAMADOL 50MG TABLET PO PRN (03:27)
[2019-05-22 03:44] VITALS: BP 142/59
[2019-05-22] MEDS: SILDENAFIL CITRATE 20MG TABLET PO SCH (05:22)
[2019-05-22 08:00] VITALS: BP 138/55
[2019-05-22 08:19] VITALS: BP 138/56
[2019-05-22] MEDS: ASPIRIN 81MG EC TABLET PO SCH (08:40)
[2019-05-22] MEDS: FUROSEMIDE 40MG TABLET PO SCH (08:40)
[2019-05-22] MEDS: CLOPIDOGREL 75MG TABLET PO SCH (08:40)
[2019-05-22] MEDS: NEBIVOLOL HCL 5 MG TABLET PO SCH (08:42)
[2019-05-22] MEDS: POTASSIUM CHLORIDE 20MEQ TABLET SR PO SCH (08:43)
[2019-05-22] MEDS: PREDNISONE 20MG TABLET PO SCH (08:43)
[2019-05-22] MEDS: AZITHROMYCIN 500 MG TABLET PO SCH (08:43)
[2019-05-22 12:20] VITALS: BP 133/55
== END 2019-05-22 13:20 | disposition home or self-care (01) | DRG 292 ==
LOC: ER 06:16 → 6WST 11:23 → ENRESERV 22:26 → CMPBEDREQ 05-14 02:53
PROVIDERS: ADMIT Internal Medicine; ATTEND Internal Medicine
DX: I11.0 Hypertensive heart disease with heart failure (principal); J47.1 Bronchiectasis with (acute) exacerbation; G93.49 Other encephalopathy; R07.89 Other chest pain; E78.5 Hyperlipidemia, unspecified; I25.10 Atherosclerotic heart disease of native coronary artery without angina pectoris; I27.20 Pulmonary hypertension, unspecified; G47.30 Sleep apnea, unspecified; E87.6 Hypokalemia; D86.0 Sarcoidosis of lung; D63.8 Anemia in other chronic diseases classified elsewhere; F41.9 Anxiety disorder, unspecified; M06.9 Rheumatoid arthritis, unspecified; T42.4X5A Adverse effect of benzodiazepines, initial encounter; Y92.89 Other specified places as the place of occurrence of the external cause; Z95.0 Presence of cardiac pacemaker; Z95.1 Presence of aortocoronary bypass graft; Z79.02 Long term (current) use of antithrombotics/antiplatelets; Z79.82 Long term (current) use of aspirin; Z80.0 Family history of malignant neoplasm of digestive organs; Z88.5 Allergy status to narcotic agent; Z79.899 Other long term (current) drug therapy; I50.33 Acute on chronic diastolic (congestive) heart failure
CPT/HCPCS: 36415; 36600; 71045; 72070; 80048; 80053; 80061; 82375; 82805; 83735; 83880; 84100; 84443; 84484; 85025; 93005; 93970; 94618; 94640; 96374; 96376; 97162; 97530; 99285; J1200; J1885; J1940; J2060; J7040; J7512

== ENCOUNTER 2019-08-09 11:56 | Inpatient (IN) | payer MEDICARE, OTHER ==
[~2019-08-09] VITALS: Ht 167.6 cm; Wt 77.4 kg
[~2019-08-09 11:56] MED LIST changes: -AMLO5TAB4 PO; +FERR-71 PO; +FLUT1BLS ORI; +FURO40TA5 PO; +GABA-290 PO; +REV20 PO
[2019-08-09] MEDS ORDERED: ALBUTEROL (0.083%) 2.5MG/3ML NEB HHN STA (12:00)
[2019-08-09] MEDS ORDERED: FUROSEMIDE 40MG/4ML VIAL IVP ONE (12:00)
[2019-08-09] MEDS ORDERED: IPRATROPIUM BROMIDE (0.02%) 0.5MG/2.5ML NEB HHN STA (12:00)
[2019-08-09 12:38] LABS: BASOPHILS % 0.5 % (0.0-2.0); HEMATOCRIT. 32.2 % (36.0-48.0); HEMOGLOBIN. 10.8 g/dL (12.0-16.0); LYMPHOCYTES % 19.3 % (20.0-50.0); MEAN CORPUSCULAR VOLUME 83.2 fL (81.0-99.0); MEAN PLATELET VOLUME 8.6 fl (7.4-10.4); MONOCYTES % 12.9 % (2.0-8.0); NEUTROPHILS % 67.3 % (40.0-76.0); PLATELET 362 x1000/uL (130-400); RED BLOOD CELL COUNT 3.87 mill/uL (4.2-5.4); RED CELL DISTRIBUTION WIDTH 17.4 % (11.6-14.6)
[2019-08-09 12:44] LABS: CHLORIDE 87 mEq/L (98-107)
[2019-08-09 12:58] LABS: INR 1.1; PROTHROMBIN TIME 12.1 sec (9.6-11.0)
[2019-08-09 13:15] LABS: BG BASE EXCESS -1.7 mmol/L (-2.0-2.0); BG BILEVEL POS AIRWAY PRESSURE 15/5; BG CARBOXYHEMOGLOBIN 0.3 % (0.5-1.5); BG DEOXYHEMOGLOBIN 0.3 % (0.0-5.0); BG HCO3 ACT 20.7 mmol/L (22.0-26.0); BG METHEMOGLOBIN 0.2 % (0.0-1.5); BG OXYGEN SATURATION 99.7 % (92.0-98.5); BG OXYHEMOGLOBIN 99.2 % (94.0-97.0); BG PH 7.487 (7.350-7.450); BG SAMPLE SITE RIGHT RADIAL; BG TOTAL HEMOGLOBIN 11.5 g/dL (12.0-18.0); BG VENT MODE MASK - BIPAP; BG VENT RATE 16 set
[2019-08-09] MEDS ORDERED: ONDANSETRON HCL 4MG/2ML INJ IV ONE (13:30)
[2019-08-09] MEDS ORDERED: MORPHINE SULFATE 2 MG/ML CPJ (NOT FOR IM USE) IV ONE (13:30)
[2019-08-09 15:28] VITALS: BP 125/77
[2019-08-09 16:00] VITALS: BP 126/59
[2019-08-09] MEDS ORDERED: AMLO5TAB88 MT (16:28)
[2019-08-09] MEDS ORDERED: AMLO5TAB88 PO (16:28)
[2019-08-09] MEDS: FUROSEMIDE 40MG/4ML VIAL IVP SCH (17:15)
[2019-08-09] MEDS ORDERED: ACETAMINOPHEN 325MG TABLET PO PRN (17:30)
[2019-08-09] MEDS ORDERED: FLUTICASONE/VILANTEROL 200-25 BLST.W.DEV ORI SCH (17:30)
[2019-08-09] MEDS ORDERED: IPRATROPIUM/ALBUTEROL 0.5-3(2.5)MG/3ML NEB HHN PRN (17:30)
[2019-08-09] MEDS ORDERED: ONDANSETRON HCL 4MG/2ML INJ IV PRN (17:30)
[2019-08-09 18:00] VITALS: BP 127/52
[2019-08-09] MEDS: POLYETHYLENE GLYCOL 3350 (17GM) 1 DOSE PACK PO SCH (18:35)
[2019-08-09] MEDS: HYDROCODONE/ACETAMINOPHEN 5/325MG TABLET PO PRN (18:36)
[2019-08-09 20:00] VITALS: BP 115/57
[2019-08-09] MEDS: GUAIFENESIN 200MG/10ML SUGAR FREE UDC PO PRN (21:03)
[2019-08-09] MEDS: LORAZEPAM 0.5MG TABLET PO PRN (21:03)
[2019-08-09] MEDS: GABAPENTIN 300MG CAPSULE PO SCH (21:05)
[2019-08-09] MEDS: SILDENAFIL CITRATE 20MG TABLET PO SCH (21:05)
[2019-08-09] MEDS: AZITHROMYCIN 500 MG TABLET PO SCH (21:41)
[2019-08-09 22:00] VITALS: BP 103/54
[2019-08-10] VITALS (14 sets, daily range): BP systolic 11–129; BP diastolic 45–71
[2019-08-10] MEDS: IPRATROPIUM/ALBUTEROL 0.5-3(2.5)MG/3ML NEB HHN SCH ×6 (00:55→20:11)
[2019-08-10] MEDS: BUDESONIDE 0.5MG/2ML NEB HHN SCH ×3 (00:56→20:12)
[2019-08-10 06:09] LABS: BASOPHILS % 0.5 % (0.0-2.0); EOSINOPHILS % 0.2 % (0.0-5.0); HEMATOCRIT. 29.7 % (36.0-48.0); HEMOGLOBIN. 9.7 g/dL (12.0-16.0); LYMPHOCYTES % 23.4 % (20.0-50.0); MEAN CORPUSCULAR HEMOGLOBIN 27.2 pg (28.0-32.0); MEAN CORPUSCULAR VOLUME 82.9 fL (81.0-99.0); MEAN PLATELET VOLUME 7.8 fl (7.4-10.4); MONOCYTES % 12.8 % (2.0-8.0); NEUTROPHILS % 63.1 % (40.0-76.0); PLATELET 358 x1000/uL (130-400); RED BLOOD CELL COUNT 3.59 mill/uL (4.2-5.4); RED CELL DISTRIBUTION WIDTH 17.1 % (11.6-14.6)
[2019-08-10 06:17] LABS: CHLORIDE 88 mEq/L (98-107)
[2019-08-10 06:22] LABS: PHOSPHORUS 3.1 mg/dL (2.5-4.9)
[2019-08-10] MEDS: GABAPENTIN 300MG CAPSULE PO SCH ×3 (06:40→21:43)
[2019-08-10] MEDS: HYDROCODONE/ACETAMINOPHEN 5/325MG TABLET PO PRN ×2 (06:41→16:16)
[2019-08-10] MEDS: FUROSEMIDE 40MG/4ML VIAL IVP SCH ×2 (06:41→16:16)
[2019-08-10] MEDS: SILDENAFIL CITRATE 20MG TABLET PO SCH ×3 (06:55→22:50)
[2019-08-10] MEDS: POLYETHYLENE GLYCOL 3350 (17GM) 1 DOSE PACK PO SCH (08:16)
[2019-08-10] MEDS: ASPIRIN 81MG EC TABLET PO SCH (08:16)
[2019-08-10] MEDS: EZETIMIBE 10MG TABLET PO SCH (08:16)
[2019-08-10] MEDS: CLOPIDOGREL 75MG TABLET PO SCH (08:16)
[2019-08-10] MEDS: NEBIVOLOL HCL 5 MG TABLET PO SCH (08:18)
[2019-08-10] MEDS ORDERED: FUROSEMIDE 40MG/4ML VIAL IV SCH (09:45)
[2019-08-10] MEDS ORDERED: ALBUTEROL (0.083%) 2.5MG/3ML NEB HHN SCH (18:30)
[2019-08-10] MEDS: GUAIFENESIN 200MG/10ML SUGAR FREE UDC PO PRN (18:47)
[2019-08-10] MEDS: AZITHROMYCIN 500 MG TABLET PO SCH (21:43)
[2019-08-11] VITALS (15 sets, daily range): BP systolic 117–149; BP diastolic 46–72
[2019-08-11] MEDS: IPRATROPIUM/ALBUTEROL 0.5-3(2.5)MG/3ML NEB HHN SCH ×5 (00:09→20:33)
[2019-08-11 05:04] LABS: CLARITY URINE CLOUDY (CLEAR); COLOR URINE DK YELLOW (YELLOW); KETONES URINE NEGATIVE (NEGATIVE); LEUKOCYTE ESTERASE URINE 3+ (NEGATIVE); NITRITE URINE NEGATIVE (NEGATIVE); OCCULT BLOOD URINE NEGATIVE (NEGATIVE); PH URINE 5.5 (4.5-8.0); PROTEIN URINE 1+ (NEGATIVE); SPECIFIC GRAVITY URINE 1.016 (1.005-1.030); UROBILINOGEN URINE 0.2 E.U./dL (0.2-1.0)
[2019-08-11] MEDS: GABAPENTIN 300MG CAPSULE PO SCH ×3 (05:56→21:49)
[2019-08-11] MEDS: SILDENAFIL CITRATE 20MG TABLET PO SCH ×3 (05:56→21:50)
[2019-08-11] MEDS: GUAIFENESIN 200MG/10ML SUGAR FREE UDC PO PRN (05:56)
[2019-08-11 06:43] LABS: CHLORIDE 91 mEq/L (98-107)
[2019-08-11 06:58] LABS: HEMATOCRIT. 28.3 % (36.0-48.0); HEMOGLOBIN. 9.5 g/dL (12.0-16.0); MEAN CORPUSCULAR VOLUME 83.5 fL (81.0-99.0); MEAN PLATELET VOLUME 7.7 fl (7.4-10.4); PLATELET 391 x1000/uL (130-400); RED BLOOD CELL COUNT 3.39 mill/uL (4.2-5.4); RED CELL DISTRIBUTION WIDTH 17.4 % (11.6-14.6)
[2019-08-11 07:02] LABS: PHOSPHORUS 3.7 mg/dL (2.5-4.9)
[2019-08-11] MEDS: EZETIMIBE 10MG TABLET PO SCH (08:45)
[2019-08-11] MEDS: ASPIRIN 81MG EC TABLET PO SCH (08:45)
[2019-08-11] MEDS: CLOPIDOGREL 75MG TABLET PO SCH (08:46)
[2019-08-11] MEDS: HYDROCODONE/ACETAMINOPHEN 5/325MG TABLET PO PRN ×2 (08:46→16:17)
[2019-08-11] MEDS: FUROSEMIDE 40MG/4ML VIAL IVP SCH ×2 (08:46→18:13)
[2019-08-11] MEDS: POLYETHYLENE GLYCOL 3350 (17GM) 1 DOSE PACK PO SCH (08:46)
[2019-08-11] MEDS: NEBIVOLOL HCL 5 MG TABLET PO SCH (08:46)
[2019-08-11] MEDS: BUDESONIDE 0.5MG/2ML NEB HHN SCH ×2 (09:21→20:33)
[2019-08-11] MEDS: LORAZEPAM 0.5MG TABLET PO PRN (14:16)
[2019-08-11] MEDS: AZITHROMYCIN 500 MG TABLET PO SCH (21:49)
[2019-08-11 22:57] LABS: PLATELET ESTIMATE NORMAL
[2019-08-12] VITALS (12 sets, daily range): BP systolic 114–138; BP diastolic 35–75
[2019-08-12] MEDS: IPRATROPIUM/ALBUTEROL 0.5-3(2.5)MG/3ML NEB HHN SCH ×7 (02:05→20:49)
[2019-08-12 06:46] LABS: HEMOGLOBIN. 9.9 g/dL (12.0-16.0); MEAN CORPUSCULAR HEMOGLOBIN 26.8 pg (28.0-32.0); MEAN PLATELET VOLUME 7.6 fl (7.4-10.4); PLATELET 423 x1000/uL (130-400); RED BLOOD CELL COUNT 3.69 mill/uL (4.2-5.4); RED CELL DISTRIBUTION WIDTH 17.6 % (11.6-14.6)
[2019-08-12] MEDS: GABAPENTIN 300MG CAPSULE PO SCH ×3 (06:49→21:00)
[2019-08-12] MEDS: SILDENAFIL CITRATE 20MG TABLET PO SCH ×3 (06:50→21:00)
[2019-08-12] MEDS: FUROSEMIDE 40MG/4ML VIAL IVP SCH ×2 (06:50→17:06)
[2019-08-12 06:56] LABS: CHLORIDE 88 mEq/L (98-107)
[2019-08-12] MEDS: EZETIMIBE 10MG TABLET PO SCH (08:00)
[2019-08-12] MEDS: ASPIRIN 81MG EC TABLET PO SCH (08:00)
[2019-08-12] MEDS: POLYETHYLENE GLYCOL 3350 (17GM) 1 DOSE PACK PO SCH (08:01)
[2019-08-12] MEDS: NEBIVOLOL HCL 5 MG TABLET PO SCH (08:01)
[2019-08-12] MEDS: CLOPIDOGREL 75MG TABLET PO SCH (08:01)
[2019-08-12] MEDS: BUDESONIDE 0.5MG/2ML NEB HHN SCH ×2 (08:48→20:51)
[2019-08-12 10:28] LABS: PLATELET ESTIMATE INCREASED
[2019-08-12] MEDS: HYDROCODONE/ACETAMINOPHEN 5/325MG TABLET PO PRN ×2 (12:26→20:29)
[2019-08-12] MEDS: CLINDAMYCIN HCL 150MG CAPSULE PO SCH ×2 (12:26→17:06)
[2019-08-12] MEDS: AZITHROMYCIN 500 MG TABLET PO SCH (20:28)
[2019-08-12] MEDS ORDERED: BUDESONIDE 0.5MG/2ML NEB ONE (20:55)
[2019-08-12] MEDS: GUAIFENESIN 200MG/10ML SUGAR FREE UDC PO PRN (22:42)
[2019-08-13] VITALS (13 sets, daily range): BP systolic 97–128; BP diastolic 39–74
[2019-08-13] MEDS: CLINDAMYCIN HCL 150MG CAPSULE PO SCH ×2 (01:04→05:17)
[2019-08-13] MEDS: HYDROCODONE/ACETAMINOPHEN 5/325MG TABLET PO PRN ×2 (01:58→21:27)
[2019-08-13] MEDS: IPRATROPIUM/ALBUTEROL 0.5-3(2.5)MG/3ML NEB HHN SCH ×2 (02:25→20:48)
[2019-08-13] MEDS: GABAPENTIN 300MG CAPSULE PO SCH ×3 (05:17→21:27)
[2019-08-13] MEDS: SILDENAFIL CITRATE 20MG TABLET PO SCH ×3 (05:17→21:27)
[2019-08-13] MEDS: FUROSEMIDE 40MG/4ML VIAL IVP SCH ×2 (08:35→18:42)
[2019-08-13] MEDS: POLYETHYLENE GLYCOL 3350 (17GM) 1 DOSE PACK PO SCH (08:37)
[2019-08-13] MEDS: ASPIRIN 81MG EC TABLET PO SCH (08:37)
[2019-08-13] MEDS: EZETIMIBE 10MG TABLET PO SCH (08:37)
[2019-08-13] MEDS: CLOPIDOGREL 75MG TABLET PO SCH (08:37)
[2019-08-13] MEDS: NEBIVOLOL HCL 5 MG TABLET PO SCH (08:40)
[2019-08-13] MEDS ORDERED: METHOTREXATE SODIUM 2 . 5MG TABLET PO SCH (09:00)
[2019-08-13] MEDS ORDERED: SODIUM POLYSTYRENE SULFONATE 15 G/60 ML BOT PO ONE (15:00)
[2019-08-13] MEDS: DEMECLOCYCLINE HCL 300MG TABLET PO SCH ×2 (16:31→21:26)
[2019-08-13] MEDS: CEFTRIAXONE 1 G PREMIX 50 ML IV SCH (18:42)
[2019-08-13] MEDS: AZITHROMYCIN 500 MG TABLET PO SCH (21:26)
[2019-08-14] VITALS (12 sets, daily range): BP systolic 110–137; BP diastolic 47–89
[2019-08-14] MEDS: IPRATROPIUM/ALBUTEROL 0.5-3(2.5)MG/3ML NEB HHN SCH ×6 (01:17→20:32)
[2019-08-14] MEDS: GABAPENTIN 300MG CAPSULE PO SCH ×3 (05:15→22:09)
[2019-08-14] MEDS: SILDENAFIL CITRATE 20MG TABLET PO SCH ×3 (05:15→22:09)
[2019-08-14] MEDS: HYDROCODONE/ACETAMINOPHEN 5/325MG TABLET PO PRN ×2 (05:16→09:12)
[2019-08-14 06:41] LABS: CHLORIDE 92 mEq/L (98-107)
[2019-08-14 06:48] LABS: PHOSPHORUS 3.4 mg/dL (2.5-4.9)
[2019-08-14 06:50] LABS: BASOPHILS % 0.5 % (0.0-2.0); EOSINOPHILS % 0.4 % (0.0-5.0); HEMATOCRIT. 28.6 % (36.0-48.0); HEMOGLOBIN. 9.7 g/dL (12.0-16.0); LYMPHOCYTES % 17.8 % (20.0-50.0); MEAN CORPUSCULAR HEMOGLOBIN 28.4 pg (28.0-32.0); MEAN CORPUSCULAR VOLUME 83.8 fL (81.0-99.0); MEAN PLATELET VOLUME 7.3 fl (7.4-10.4); MONOCYTES % 13.7 % (2.0-8.0); NEUTROPHILS % 67.6 % (40.0-76.0); PLATELET 445 x1000/uL (130-400); RED BLOOD CELL COUNT 3.41 mill/uL (4.2-5.4); RED CELL DISTRIBUTION WIDTH 17.1 % (11.6-14.6)
[2019-08-14] MEDS: DEMECLOCYCLINE HCL 300MG TABLET PO SCH ×2 (08:02→20:55)
[2019-08-14] MEDS: ASPIRIN 81MG EC TABLET PO SCH (08:02)
[2019-08-14] MEDS: CLOPIDOGREL 75MG TABLET PO SCH (08:03)
[2019-08-14] MEDS: POLYETHYLENE GLYCOL 3350 (17GM) 1 DOSE PACK PO SCH (08:03)
[2019-08-14] MEDS: NEBIVOLOL HCL 5 MG TABLET PO SCH (08:03)
[2019-08-14] MEDS: EZETIMIBE 10MG TABLET PO SCH (08:03)
[2019-08-14] MEDS: FUROSEMIDE 40MG/4ML VIAL IVP SCH ×2 (09:13→17:26)
[2019-08-14 09:30] LABS: BG BASE EXCESS 2.2 mmol/L (-2.0-2.0); BG CARBOXYHEMOGLOBIN 0.3 % (0.5-1.5); BG DEOXYHEMOGLOBIN 5.4 % (0.0-5.0); BG FRACTION INSPIRED OXYGEN 21; BG HCO3 ACT 26.1 mmol/L (22.0-26.0); BG METHEMOGLOBIN 0.7 % (0.0-1.5); BG OXYGEN SATURATION 94.5 % (92.0-98.5); BG OXYHEMOGLOBIN 93.6 % (94.0-97.0); BG PCO2 37.7 mmHg (35.0-45.0); BG PH 7.458 (7.350-7.450); BG PO2 72.6 mmHg (75.0-100.0); BG SAMPLE SITE RIGHT RADIAL; BG TOTAL HEMOGLOBIN 11.1 g/dL (12.0-18.0); BG VENT MODE ROOM AIR
[2019-08-14] MEDS: CEFTRIAXONE 1 G PREMIX 50 ML IV SCH (17:26)
[2019-08-14] MEDS ORDERED: HYDROCODONE/ACETAMINOPHEN 5/325MG TABLET PO PRN (23:30)
[2019-08-15] VITALS (12 sets, daily range): BP systolic 105–136; BP diastolic 45–68
[2019-08-15] MEDS: IPRATROPIUM/ALBUTEROL 0.5-3(2.5)MG/3ML NEB HHN SCH ×7 (00:07→20:35)
[2019-08-15] MEDS: GABAPENTIN 300MG CAPSULE PO SCH ×3 (05:59→21:49)
[2019-08-15] MEDS: SILDENAFIL CITRATE 20MG TABLET PO SCH ×3 (06:00→23:33)
[2019-08-15 06:42] LABS: CHLORIDE 94 mEq/L (98-107)
[2019-08-15 06:49] LABS: PHOSPHORUS 3.1 mg/dL (2.5-4.9)
[2019-08-15 06:53] LABS: BASOPHILS % 0.6 % (0.0-2.0); EOSINOPHILS % 0.2 % (0.0-5.0); HEMATOCRIT. 30.7 % (36.0-48.0); HEMOGLOBIN. 10.1 g/dL (12.0-16.0); LYMPHOCYTES % 22.7 % (20.0-50.0); MEAN CORPUSCULAR HEMOGLOBIN 27.4 pg (28.0-32.0); MEAN CORPUSCULAR VOLUME 83.2 fL (81.0-99.0); MEAN PLATELET VOLUME 7.1 fl (7.4-10.4); MONOCYTES % 6.5 % (2.0-8.0); PLATELET 510 x1000/uL (130-400); RED BLOOD CELL COUNT 3.68 mill/uL (4.2-5.4)
[2019-08-15] MEDS: FUROSEMIDE 40MG/4ML VIAL IVP SCH ×2 (07:02→17:44)
[2019-08-15] MEDS: EZETIMIBE 10MG TABLET PO SCH (08:51)
[2019-08-15] MEDS: ASPIRIN 81MG EC TABLET PO SCH (08:51)
[2019-08-15] MEDS: DEMECLOCYCLINE HCL 300MG TABLET PO SCH ×2 (08:51→21:49)
[2019-08-15] MEDS: CLOPIDOGREL 75MG TABLET PO SCH (08:51)
[2019-08-15] MEDS: NEBIVOLOL HCL 5 MG TABLET PO SCH (08:52)
[2019-08-15] MEDS: POLYETHYLENE GLYCOL 3350 (17GM) 1 DOSE PACK PO SCH (08:52)
[2019-08-15] MEDS: HYDROCODONE/ACETAMINOPHEN 5/325MG TABLET PO PRN ×2 (12:07→17:44)
[2019-08-15] MEDS: CEFTRIAXONE 1 G PREMIX 50 ML IV SCH (17:44)
[2019-08-16] VITALS (13 sets, daily range): BP systolic 99–135; BP diastolic 50–73
[2019-08-16] MEDS: IPRATROPIUM/ALBUTEROL 0.5-3(2.5)MG/3ML NEB HHN SCH ×4 (00:36→12:20)
[2019-08-16] MEDS: HYDROCODONE/ACETAMINOPHEN 5/325MG TABLET PO PRN ×3 (02:09→21:15)
[2019-08-16] MEDS: GABAPENTIN 300MG CAPSULE PO SCH ×3 (05:56→21:13)
[2019-08-16] MEDS: SILDENAFIL CITRATE 20MG TABLET PO SCH ×3 (05:57→21:14)
[2019-08-16 06:30] LABS: BASOPHILS % 0.9 % (0.0-2.0); EOSINOPHILS % 0.6 % (0.0-5.0); HEMATOCRIT. 29.9 % (36.0-48.0); HEMOGLOBIN. 9.8 g/dL (12.0-16.0); LYMPHOCYTES % 22.8 % (20.0-50.0); MEAN CORPUSCULAR HEMOGLOBIN 27.3 pg (28.0-32.0); MEAN CORPUSCULAR VOLUME 83.3 fL (81.0-99.0); MEAN PLATELET VOLUME 6.8 fl (7.4-10.4); MONOCYTES % 2.8 % (2.0-8.0); NEUTROPHILS % 72.9 % (40.0-76.0); PLATELET 508 x1000/uL (130-400); RED BLOOD CELL COUNT 3.59 mill/uL (4.2-5.4); RED CELL DISTRIBUTION WIDTH 17.2 % (11.6-14.6)
[2019-08-16 06:40] LABS: CHLORIDE 94 mEq/L (98-107)
[2019-08-16 06:46] LABS: PHOSPHORUS 2.6 mg/dL (2.5-4.9)
[2019-08-16] MEDS: EZETIMIBE 10MG TABLET PO SCH (09:24)
[2019-08-16] MEDS: DEMECLOCYCLINE HCL 300MG TABLET PO SCH ×2 (09:24→21:14)
[2019-08-16] MEDS: ASPIRIN 81MG EC TABLET PO SCH (09:24)
[2019-08-16] MEDS: FUROSEMIDE 40MG/4ML VIAL IVP SCH ×2 (09:24→17:56)
[2019-08-16] MEDS: NEBIVOLOL HCL 5 MG TABLET PO SCH (09:24)
[2019-08-16] MEDS: CLOPIDOGREL 75MG TABLET PO SCH (09:24)
[2019-08-16] MEDS ORDERED: POTASSIUM CHLORIDE 20MEQ TABLET SR PO NR (09:30)
[2019-08-16] MEDS: POLYETHYLENE GLYCOL 3350 (17GM) 1 DOSE PACK PO SCH (13:34)
[2019-08-16] MEDS: FLUTICASONE/VILANTEROL 200-25 BLST.W.DEV ORI SCH (14:53)
[2019-08-16] MEDS: UMECLIDINIUM BROMIDE 1 INH BLST.W.DEV IH SCH (14:54)
[2019-08-17] VITALS (12 sets, daily range): BP systolic 104–142; BP diastolic 47–67
[2019-08-17] MEDS: GABAPENTIN 300MG CAPSULE PO SCH ×3 (05:29→21:18)
[2019-08-17] MEDS: SILDENAFIL CITRATE 20MG TABLET PO SCH ×3 (05:31→21:18)
[2019-08-17 07:37] LABS: HEMATOCRIT. 28.9 % (36.0-48.0); HEMOGLOBIN. 9.7 g/dL (12.0-16.0); MEAN CORPUSCULAR HEMOGLOBIN 27.8 pg (28.0-32.0); MEAN CORPUSCULAR VOLUME 82.9 fL (81.0-99.0); MEAN PLATELET VOLUME 6.9 fl (7.4-10.4); PLATELET 483 x1000/uL (130-400); RED BLOOD CELL COUNT 3.49 mill/uL (4.2-5.4); RED CELL DISTRIBUTION WIDTH 16.8 % (11.6-14.6)
[2019-08-17 07:49] LABS: CHLORIDE 94 mEq/L (98-107)
[2019-08-17 07:58] LABS: PHOSPHORUS 2.6 mg/dL (2.5-4.9)
[2019-08-17] MEDS: FUROSEMIDE 40MG/4ML VIAL IVP SCH ×2 (08:32→17:16)
[2019-08-17] MEDS: UMECLIDINIUM BROMIDE 1 INH BLST.W.DEV IH SCH (08:32)
[2019-08-17] MEDS: FLUTICASONE/VILANTEROL 200-25 BLST.W.DEV ORI SCH (08:33)
[2019-08-17] MEDS: ASPIRIN 81MG EC TABLET PO SCH (08:33)
[2019-08-17] MEDS: CLOPIDOGREL 75MG TABLET PO SCH (08:33)
[2019-08-17] MEDS: POLYETHYLENE GLYCOL 3350 (17GM) 1 DOSE PACK PO SCH (08:33)
[2019-08-17] MEDS: NEBIVOLOL HCL 5 MG TABLET PO SCH (08:33)
[2019-08-17] MEDS: DEMECLOCYCLINE HCL 300MG TABLET PO SCH ×2 (08:33→21:18)
[2019-08-17] MEDS: EZETIMIBE 10MG TABLET PO SCH (08:36)
[2019-08-17] MEDS ORDERED: POTASSIUM CHLORIDE 20MEQ TABLET SR PO NR (09:00)
[2019-08-17] MEDS ORDERED: MAGNESIUM 2 G PREMIX 50 ML IV SCH (10:00)
[2019-08-17] MEDS: HYDROCODONE/ACETAMINOPHEN 5/325MG TABLET PO PRN ×2 (11:38→23:05)
[2019-08-17 14:01] LABS: PLATELET ESTIMATE INCREASED
[2019-08-17] MEDS: PREDNISONE 20MG TABLET PO SCH (14:30)
[2019-08-18] VITALS (10 sets, daily range): BP systolic 99–137; BP diastolic 46–68
[2019-08-18] MEDS: GABAPENTIN 300MG CAPSULE PO SCH ×2 (05:05→14:42)
[2019-08-18] MEDS: SILDENAFIL CITRATE 20MG TABLET PO SCH ×2 (05:05→14:42)
[2019-08-18 07:36] LABS: BASOPHILS % 0.2 % (0.0-2.0); EOSINOPHILS % 0.1 % (0.0-5.0); HEMATOCRIT. 29.5 % (36.0-48.0); HEMOGLOBIN. 9.9 g/dL (12.0-16.0); MEAN CORPUSCULAR HEMOGLOBIN 27.9 pg (28.0-32.0); MEAN CORPUSCULAR VOLUME 83.4 fL (81.0-99.0); MONOCYTES % 4.2 % (2.0-8.0); NEUTROPHILS % 80.5 % (40.0-76.0); PLATELET 534 x1000/uL (130-400); RED BLOOD CELL COUNT 3.53 mill/uL (4.2-5.4); RED CELL DISTRIBUTION WIDTH 16.8 % (11.6-14.6)
[2019-08-18 07:40] LABS: CHLORIDE 94 mEq/L (98-107)
[2019-08-18 08:00] LABS: PHOSPHORUS 3.2 mg/dL (2.5-4.9)
[2019-08-18] MEDS: FUROSEMIDE 40MG/4ML VIAL IVP SCH ×2 (08:31→17:06)
[2019-08-18] MEDS: CLOPIDOGREL 75MG TABLET PO SCH (08:31)
[2019-08-18] MEDS: UMECLIDINIUM BROMIDE 1 INH BLST.W.DEV IH SCH (08:31)
[2019-08-18] MEDS: DEMECLOCYCLINE HCL 300MG TABLET PO SCH (08:31)
[2019-08-18] MEDS: NEBIVOLOL HCL 5 MG TABLET PO SCH (08:31)
[2019-08-18] MEDS: FLUTICASONE/VILANTEROL 200-25 BLST.W.DEV ORI SCH (08:31)
[2019-08-18] MEDS: ASPIRIN 81MG EC TABLET PO SCH (08:31)
[2019-08-18] MEDS: PREDNISONE 20MG TABLET PO SCH (08:32)
[2019-08-18] MEDS: EZETIMIBE 10MG TABLET PO SCH (08:32)
[2019-08-18] MEDS: POLYETHYLENE GLYCOL 3350 (17GM) 1 DOSE PACK PO SCH (08:40)
[2019-08-18] MEDS: HYDROCODONE/ACETAMINOPHEN 5/325MG TABLET PO PRN (14:42)
== END 2019-08-18 17:30 | DRG 291 ==
LOC: ER 11:56 → 3WST 12:42 → EDBEDREQ 12:45 → ENRESERV 13:50
PROVIDERS: ADMIT Internal Medicine; ATTEND Internal Medicine
PROC: 5A09357 Assistance with Respiratory Ventilation, Less than 24 Consecutive Hours, Continuous Positive Airway Pressure (ICD-10-PCS; principal; 2019-08-09)
DX: I11.0 Hypertensive heart disease with heart failure (principal); J96.01 Acute respiratory failure with hypoxia; J47.1 Bronchiectasis with (acute) exacerbation; E44.1 Mild protein-calorie malnutrition; E87.1 Hypo-osmolality and hyponatremia; E87.2 Acidosis; L03.115 Cellulitis of right lower limb; N39.0 Urinary tract infection, site not specified; I50.33 Acute on chronic diastolic (congestive) heart failure; D64.9 Anemia, unspecified; I27.20 Pulmonary hypertension, unspecified; E78.5 Hyperlipidemia, unspecified; G47.30 Sleep apnea, unspecified; M06.9 Rheumatoid arthritis, unspecified; I49.5 Sick sinus syndrome; K76.0 Fatty (change of) liver, not elsewhere classified; I25.10 Atherosclerotic heart disease of native coronary artery without angina pectoris; E87.5 Hyperkalemia; G62.9 Polyneuropathy, unspecified; I65.29 Occlusion and stenosis of unspecified carotid artery; F41.9 Anxiety disorder, unspecified; D86.9 Sarcoidosis, unspecified; I35.1 Nonrheumatic aortic (valve) insufficiency; M19.90 Unspecified osteoarthritis, unspecified site; M71.22 Synovial cyst of popliteal space [Baker], left knee; E83.42 Hypomagnesemia; Z79.02 Long term (current) use of antithrombotics/antiplatelets; Z79.82 Long term (current) use of aspirin; Z95.0 Presence of cardiac pacemaker; Z79.899 Other long term (current) drug therapy; Z95.1 Presence of aortocoronary bypass graft; Z80.0 Family history of malignant neoplasm of digestive organs; Z82.49 Family history of ischemic heart disease and other diseases of the circulatory system; Z90.710 Acquired absence of both cervix and uterus; Z91.19 Patient's noncompliance with other medical treatment and regimen; Z95.5 Presence of coronary angioplasty implant and graft; Z88.5 Allergy status to narcotic agent; Z91.14 Patient's other noncompliance with medication regimen; Z88.8 Allergy status to other drugs, medicaments and biological substances; Z68.27 Body mass index [BMI] 27.0-27.9, adult
CPT/HCPCS: 36415; 36600; 71045; 73560; 80048; 80053; 81003; 82375; 82533; 82570; 82805; 82962; 83605; 83735; 83880; 83935; 84100; 84145; 84295; 84300; 84443; 84484; 84540; 85025; 85651; 86140; 87077; 93005; 93923; 93970; 94640; 94660; 97110; 97162; 97166; 97530; 97535; 99291; J0696; J1940; J2270; J2405; J3475; J7512; J7626; J8610

== ENCOUNTER 2019-08-18 17:35 | Inpatient (IN) | payer MEDICARE, OTHER ==
[~2019-08-18] VITALS: Ht 167.6 cm; Wt 76.2 kg
[~2019-08-18 17:35] MED LIST changes: +AMLO5TAB88 MT; +AMLO5TAB88 PO
[2019-08-18] MEDS ORDERED: ONDANSETRON HCL 4MG/2ML INJ IV PRN (18:45)
[2019-08-18] MEDS ORDERED: ONDANSETRON HCL 4MG TABLET PO PRN (19:00)
[2019-08-18 19:40] VITALS: BP 126/62
[2019-08-18 20:00] VITALS: BP 123/59
[2019-08-18] MEDS: DEMECLOCYCLINE HCL 300MG TABLET PO SCH (20:08)
[2019-08-18] MEDS: HYDROCODONE/ACETAMINOPHEN 5/325MG TABLET PO PRN (20:09)
[2019-08-18] MEDS: SILDENAFIL CITRATE 20MG TABLET PO SCH (21:31)
[2019-08-18] MEDS: GABAPENTIN 300MG CAPSULE PO SCH (21:31)
[2019-08-19] MEDS: HYDROCODONE/ACETAMINOPHEN 5/325MG TABLET PO PRN ×3 (02:53→15:50)
[2019-08-19] MEDS: SILDENAFIL CITRATE 20MG TABLET PO SCH ×3 (05:09→22:10)
[2019-08-19] MEDS: GABAPENTIN 300MG CAPSULE PO SCH ×3 (05:09→22:09)
[2019-08-19] MEDS: FUROSEMIDE 40MG TABLET PO SCH ×2 (07:06→18:00)
[2019-08-19 07:21] VITALS: BP 128/62
[2019-08-19 07:23] LABS: BASOPHILS % 0.4 % (0.0-2.0); HEMATOCRIT. 32.6 % (36.0-48.0); HEMOGLOBIN. 10.6 g/dL (12.0-16.0); LYMPHOCYTES % 19.8 % (20.0-50.0); MEAN CORPUSCULAR HEMOGLOBIN 27.3 pg (28.0-32.0); MEAN CORPUSCULAR VOLUME 84.3 fL (81.0-99.0); MEAN PLATELET VOLUME 7.1 fl (7.4-10.4); MONOCYTES % 9.3 % (2.0-8.0); NEUTROPHILS % 70.5 % (40.0-76.0); PLATELET 485 x1000/uL (130-400); RED BLOOD CELL COUNT 3.87 mill/uL (4.2-5.4)
[2019-08-19 07:27] LABS: CHLORIDE 92 mEq/L (98-107)
[2019-08-19] MEDS: EZETIMIBE 10MG TABLET PO SCH (08:45)
[2019-08-19] MEDS: UMECLIDINIUM BROMIDE 1 INH BLST.W.DEV IH SCH (08:46)
[2019-08-19] MEDS: PREDNISONE 20MG TABLET PO SCH (08:46)
[2019-08-19] MEDS: NEBIVOLOL HCL 5 MG TABLET PO SCH (08:46)
[2019-08-19] MEDS: DEMECLOCYCLINE HCL 300MG TABLET PO SCH ×2 (08:46→20:15)
[2019-08-19] MEDS: ASPIRIN 81MG EC TABLET PO SCH (08:46)
[2019-08-19] MEDS: FLUTICASONE/VILANTEROL 200-25 BLST.W.DEV ORI SCH (08:46)
[2019-08-19] MEDS: POLYETHYLENE GLYCOL 3350 (17GM) 1 DOSE PACK PO SCH (08:46)
[2019-08-19] MEDS: CLOPIDOGREL 75MG TABLET PO SCH (08:46)
[2019-08-19] MEDS: IPRATROPIUM/ALBUTEROL 0.5-3(2.5)MG/3ML NEB HHN PRN ×3 (11:10→22:05)
[2019-08-19 20:00] VITALS: BP 125/77
[2019-08-19] MEDS ORDERED: LORAZEPAM 0.5MG TABLET PO PRN (21:15)
[2019-08-20] MEDS: GUAIFENESIN 200MG/10ML SUGAR FREE UDC PO PRN (00:07)
[2019-08-20] MEDS: HYDROCODONE/ACETAMINOPHEN 5/325MG TABLET PO PRN ×2 (03:26→12:49)
[2019-08-20] MEDS: GABAPENTIN 300MG CAPSULE PO SCH ×3 (05:14→21:41)
[2019-08-20] MEDS: SILDENAFIL CITRATE 20MG TABLET PO SCH ×3 (05:14→21:41)
[2019-08-20 06:15] LABS: CHLORIDE 94 mEq/L (98-107)
[2019-08-20 06:21] LABS: BASOPHILS % 0.3 % (0.0-2.0); HEMATOCRIT. 30.8 % (36.0-48.0); HEMOGLOBIN. 10.3 g/dL (12.0-16.0); LYMPHOCYTES % 20.9 % (20.0-50.0); MEAN CORPUSCULAR HEMOGLOBIN 27.8 pg (28.0-32.0); MEAN CORPUSCULAR VOLUME 83.4 fL (81.0-99.0); MEAN PLATELET VOLUME 7.3 fl (7.4-10.4); MONOCYTES % 12.9 % (2.0-8.0); NEUTROPHILS % 65.9 % (40.0-76.0); PLATELET 428 x1000/uL (130-400); RED BLOOD CELL COUNT 3.69 mill/uL (4.2-5.4); RED CELL DISTRIBUTION WIDTH 16.8 % (11.6-14.6)
[2019-08-20] MEDS: FUROSEMIDE 40MG TABLET PO SCH ×2 (06:51→17:51)
[2019-08-20 08:13] VITALS: BP 146/51
[2019-08-20] MEDS: POLYETHYLENE GLYCOL 3350 (17GM) 1 DOSE PACK PO SCH (09:00)
[2019-08-20] MEDS ORDERED: METHOTREXATE SODIUM 2 . 5MG TABLET PO SCH (09:00)
[2019-08-20] MEDS: DEMECLOCYCLINE HCL 300MG TABLET PO SCH ×2 (09:01→21:41)
[2019-08-20] MEDS: CLOPIDOGREL 75MG TABLET PO SCH (09:01)
[2019-08-20] MEDS: EZETIMIBE 10MG TABLET PO SCH (09:01)
[2019-08-20] MEDS: NEBIVOLOL HCL 5 MG TABLET PO SCH (09:01)
[2019-08-20] MEDS: ASPIRIN 81MG EC TABLET PO SCH (09:01)
[2019-08-20] MEDS: PREDNISONE 20MG TABLET PO SCH (09:01)
[2019-08-20] MEDS: FLUTICASONE/VILANTEROL 200-25 BLST.W.DEV ORI SCH (09:06)
[2019-08-20] MEDS: UMECLIDINIUM BROMIDE 1 INH BLST.W.DEV IH SCH (09:06)
[2019-08-20] MEDS: AMLODIPINE 2.5MG TABLET PO SCH ×2 (12:48→21:41)
[2019-08-20] MEDS: IPRATROPIUM/ALBUTEROL 0.5-3(2.5)MG/3ML NEB HHN PRN ×2 (15:15→20:46)
[2019-08-20 20:00] VITALS: BP 132/61
[2019-08-21] MEDS: IPRATROPIUM/ALBUTEROL 0.5-3(2.5)MG/3ML NEB HHN PRN ×2 (00:31→14:40)
[2019-08-21] MEDS: HYDROCODONE/ACETAMINOPHEN 5/325MG TABLET PO PRN ×3 (03:48→12:59)
[2019-08-21] MEDS: GABAPENTIN 300MG CAPSULE PO SCH ×3 (06:10→21:26)
[2019-08-21] MEDS: FUROSEMIDE 40MG TABLET PO SCH ×2 (06:11→16:50)
[2019-08-21] MEDS: SILDENAFIL CITRATE 20MG TABLET PO SCH ×3 (06:11→21:26)
[2019-08-21] MEDS: EZETIMIBE 10MG TABLET PO SCH (08:07)
[2019-08-21] MEDS: ASPIRIN 81MG EC TABLET PO SCH (08:08)
[2019-08-21] MEDS: NEBIVOLOL HCL 5 MG TABLET PO SCH (08:09)
[2019-08-21] MEDS: AMLODIPINE 2.5MG TABLET PO SCH ×2 (08:09→21:26)
[2019-08-21] MEDS: PREDNISONE 20MG TABLET PO SCH (08:09)
[2019-08-21] MEDS: CLOPIDOGREL 75MG TABLET PO SCH (08:10)
[2019-08-21] MEDS: UMECLIDINIUM BROMIDE 1 INH BLST.W.DEV IH SCH (08:10)
[2019-08-21] MEDS: POLYETHYLENE GLYCOL 3350 (17GM) 1 DOSE PACK PO SCH (08:10)
[2019-08-21] MEDS: FLUTICASONE/VILANTEROL 200-25 BLST.W.DEV ORI SCH (08:10)
[2019-08-21] MEDS: DEMECLOCYCLINE HCL 300MG TABLET PO SCH ×2 (08:10→21:26)
[2019-08-21 08:14] VITALS: BP 132/61
[2019-08-21 20:00] VITALS: BP 121/50
[2019-08-21] MEDS ORDERED: IPRATROPIUM/ALBUTEROL 0.5-3(2.5)MG/3ML NEB HHN SCH (20:00)
[2019-08-22] MEDS: HYDROCODONE/ACETAMINOPHEN 5/325MG TABLET PO PRN ×3 (00:37→23:39)
[2019-08-22] MEDS: IPRATROPIUM/ALBUTEROL 0.5-3(2.5)MG/3ML NEB HHN PRN ×2 (01:00→03:48)
[2019-08-22] MEDS: ACETAMINOPHEN 325MG TABLET PO PRN (03:36)
[2019-08-22] MEDS: GABAPENTIN 300MG CAPSULE PO SCH ×3 (05:45→21:01)
[2019-08-22] MEDS: SILDENAFIL CITRATE 20MG TABLET PO SCH ×3 (05:45→21:01)
[2019-08-22] MEDS: FUROSEMIDE 40MG TABLET PO SCH ×2 (06:01→16:59)
[2019-08-22 07:14] LABS: BASOPHILS % 0.2 % (0.0-2.0); HEMATOCRIT. 30.6 % (36.0-48.0); LYMPHOCYTES % 16.3 % (20.0-50.0); MEAN CORPUSCULAR HEMOGLOBIN 27.5 pg (28.0-32.0); MEAN CORPUSCULAR VOLUME 84.1 fL (81.0-99.0); MEAN PLATELET VOLUME 7.7 fl (7.4-10.4); MONOCYTES % 8.4 % (2.0-8.0); NEUTROPHILS % 75.1 % (40.0-76.0); PLATELET 307 x1000/uL (130-400); RED BLOOD CELL COUNT 3.63 mill/uL (4.2-5.4); RED CELL DISTRIBUTION WIDTH 16.5 % (11.6-14.6)
[2019-08-22 07:29] LABS: CHLORIDE 95 mEq/L (98-107)
[2019-08-22 07:37] VITALS: BP 120/50
[2019-08-22 07:38] LABS: PHOSPHORUS 4.2 mg/dL (2.5-4.9)
[2019-08-22] MEDS: NEBIVOLOL HCL 5 MG TABLET PO SCH (08:42)
[2019-08-22] MEDS: DEMECLOCYCLINE HCL 300MG TABLET PO SCH ×2 (08:42→21:01)
[2019-08-22] MEDS: PREDNISONE 20MG TABLET PO SCH (08:42)
[2019-08-22] MEDS: ASPIRIN 81MG EC TABLET PO SCH (08:42)
[2019-08-22] MEDS: EZETIMIBE 10MG TABLET PO SCH (08:42)
[2019-08-22] MEDS: CLOPIDOGREL 75MG TABLET PO SCH (08:42)
[2019-08-22] MEDS: AMLODIPINE 2.5MG TABLET PO SCH ×2 (08:42→21:01)
[2019-08-22] MEDS: FLUTICASONE/VILANTEROL 200-25 BLST.W.DEV ORI SCH (08:43)
[2019-08-22] MEDS: POLYETHYLENE GLYCOL 3350 (17GM) 1 DOSE PACK PO SCH (08:43)
[2019-08-22] MEDS: UMECLIDINIUM BROMIDE 1 INH BLST.W.DEV IH SCH (08:43)
[2019-08-22] MEDS: GUAIFENESIN 200MG/10ML SUGAR FREE UDC PO PRN (09:00)
[2019-08-22 20:00] VITALS: BP 129/48
[2019-08-23] MEDS: IPRATROPIUM/ALBUTEROL 0.5-3(2.5)MG/3ML NEB HHN PRN ×2 (05:31→09:31)
[2019-08-23] MEDS: GABAPENTIN 300MG CAPSULE PO SCH ×3 (06:17→21:23)
[2019-08-23] MEDS: FUROSEMIDE 40MG TABLET PO SCH ×2 (06:17→17:03)
[2019-08-23] MEDS: SILDENAFIL CITRATE 20MG TABLET PO SCH ×3 (06:17→21:23)
[2019-08-23 08:00] VITALS: BP 128/50
[2019-08-23] MEDS: CLOPIDOGREL 75MG TABLET PO SCH (09:44)
[2019-08-23] MEDS: DEMECLOCYCLINE HCL 300MG TABLET PO SCH ×2 (09:44→20:20)
[2019-08-23] MEDS: AMLODIPINE 2.5MG TABLET PO SCH ×2 (09:44→20:20)
[2019-08-23] MEDS: PREDNISONE 20MG TABLET PO SCH (09:44)
[2019-08-23] MEDS: POLYETHYLENE GLYCOL 3350 (17GM) 1 DOSE PACK PO SCH (09:44)
[2019-08-23] MEDS: EZETIMIBE 10MG TABLET PO SCH (09:45)
[2019-08-23] MEDS: ASPIRIN 81MG EC TABLET PO SCH (09:45)
[2019-08-23] MEDS: NEBIVOLOL HCL 5 MG TABLET PO SCH (09:45)
[2019-08-23] MEDS: UMECLIDINIUM BROMIDE 1 INH BLST.W.DEV IH SCH (09:48)
[2019-08-23] MEDS: FLUTICASONE/VILANTEROL 200-25 BLST.W.DEV ORI SCH (09:48)
[2019-08-23] MEDS: HYDROCODONE/ACETAMINOPHEN 5/325MG TABLET PO PRN ×2 (10:11→20:21)
[2019-08-23 20:00] VITALS: BP 129/54
[2019-08-23] MEDS: GUAIFENESIN 200MG/10ML SUGAR FREE UDC PO PRN (20:47)
[2019-08-24] MEDS: HYDROCODONE/ACETAMINOPHEN 5/325MG TABLET PO PRN ×3 (01:39→22:39)
[2019-08-24] MEDS: IPRATROPIUM/ALBUTEROL 0.5-3(2.5)MG/3ML NEB HHN PRN (02:48)
[2019-08-24] MEDS: SILDENAFIL CITRATE 20MG TABLET PO SCH ×3 (05:20→21:30)
[2019-08-24] MEDS: GABAPENTIN 300MG CAPSULE PO SCH ×3 (05:20→21:30)
[2019-08-24] MEDS: FUROSEMIDE 40MG TABLET PO SCH ×2 (06:51→17:29)
[2019-08-24 08:21] VITALS: BP 108/51
[2019-08-24] MEDS: AMLODIPINE 2.5MG TABLET PO SCH ×2 (09:00→21:31)
[2019-08-24] MEDS: POLYETHYLENE GLYCOL 3350 (17GM) 1 DOSE PACK PO SCH (10:16)
[2019-08-24] MEDS: ASPIRIN 81MG EC TABLET PO SCH (10:16)
[2019-08-24] MEDS: CLOPIDOGREL 75MG TABLET PO SCH (10:16)
[2019-08-24] MEDS: EZETIMIBE 10MG TABLET PO SCH (10:16)
[2019-08-24] MEDS: DEMECLOCYCLINE HCL 300MG TABLET PO SCH ×2 (10:16→21:30)
[2019-08-24] MEDS: NEBIVOLOL HCL 5 MG TABLET PO SCH (10:18)
[2019-08-24] MEDS: UMECLIDINIUM BROMIDE 1 INH BLST.W.DEV IH SCH (10:19)
[2019-08-24] MEDS: FLUTICASONE/VILANTEROL 200-25 BLST.W.DEV ORI SCH (10:19)
[2019-08-24 11:10] LABS: BASOPHILS % 0.2 % (0.0-2.0); EOSINOPHILS % 0.1 % (0.0-5.0); HEMATOCRIT. 32.2 % (36.0-48.0); HEMOGLOBIN. 10.4 g/dL (12.0-16.0); LYMPHOCYTES % 13.2 % (20.0-50.0); MEAN CORPUSCULAR HEMOGLOBIN 27.4 pg (28.0-32.0); MEAN CORPUSCULAR VOLUME 85.3 fL (81.0-99.0); MEAN PLATELET VOLUME 8.2 fl (7.4-10.4); MONOCYTES % 1.7 % (2.0-8.0); NEUTROPHILS % 84.8 % (40.0-76.0); PLATELET 292 x1000/uL (130-400); RED BLOOD CELL COUNT 3.78 mill/uL (4.2-5.4); RED CELL DISTRIBUTION WIDTH 16.9 % (11.6-14.6)
[2019-08-24 11:25] LABS: CHLORIDE 95 mEq/L (98-107)
[2019-08-24] MEDS ORDERED: POTASSIUM CHLORIDE 20MEQ TABLET SR PO NR ×2 (12:30→18:00)
[2019-08-24] MEDS ORDERED: LORAZEPAM 0.5MG TABLET PO PRN (13:30)
[2019-08-24 20:00] VITALS: BP 130/56
[2019-08-25 06:00] VITALS: BP 119/50
[2019-08-25] MEDS: SILDENAFIL CITRATE 20MG TABLET PO SCH ×3 (06:04→21:20)
[2019-08-25] MEDS: GABAPENTIN 300MG CAPSULE PO SCH ×4 (06:04→21:18)
[2019-08-25] MEDS: FUROSEMIDE 40MG TABLET PO SCH ×2 (06:24→16:28)
[2019-08-25 07:28] LABS: CHLORIDE 100 mEq/L (98-107)
[2019-08-25] MEDS: ASPIRIN 81MG EC TABLET PO SCH (08:02)
[2019-08-25] MEDS: EZETIMIBE 10MG TABLET PO SCH (08:02)
[2019-08-25] MEDS: AMLODIPINE 2.5MG TABLET PO SCH ×2 (08:03→21:19)
[2019-08-25] MEDS: HYDROCODONE/ACETAMINOPHEN 5/325MG TABLET PO PRN ×2 (08:03→15:14)
[2019-08-25] MEDS: CLOPIDOGREL 75MG TABLET PO SCH (08:03)
[2019-08-25] MEDS: DEMECLOCYCLINE HCL 300MG TABLET PO SCH ×2 (08:03→21:21)
[2019-08-25] MEDS: NEBIVOLOL HCL 5 MG TABLET PO SCH (08:04)
[2019-08-25] MEDS: POLYETHYLENE GLYCOL 3350 (17GM) 1 DOSE PACK PO SCH (08:04)
[2019-08-25] MEDS: FLUTICASONE/VILANTEROL 200-25 BLST.W.DEV ORI SCH (08:05)
[2019-08-25] MEDS: UMECLIDINIUM BROMIDE 1 INH BLST.W.DEV IH SCH (08:05)
[2019-08-25 08:21] VITALS: BP 181/55
[2019-08-25 09:00] VITALS: BP 120/50
[2019-08-25] MEDS ORDERED: POTASSIUM CHLORIDE 20MEQ/PACKET PO NR (13:15)
[2019-08-25 20:00] VITALS: BP 110/44
[2019-08-25] MEDS: ACETAMINOPHEN 325MG TABLET PO PRN (21:17)
[2019-08-26] MEDS: GABAPENTIN 300MG CAPSULE PO SCH ×4 (06:41→21:27)
[2019-08-26] MEDS: FUROSEMIDE 40MG TABLET PO SCH ×2 (06:42→16:59)
[2019-08-26 06:43] LABS: BASOPHILS % 0.1 % (0.0-2.0); EOSINOPHILS % 1.5 % (0.0-5.0); HEMATOCRIT. 28.9 % (36.0-48.0); HEMOGLOBIN. 9.5 g/dL (12.0-16.0); LYMPHOCYTES % 13.7 % (20.0-50.0); MEAN CORPUSCULAR HEMOGLOBIN 27.9 pg (28.0-32.0); MEAN CORPUSCULAR VOLUME 84.8 fL (81.0-99.0); MEAN PLATELET VOLUME 8.3 fl (7.4-10.4); MONOCYTES % 5.7 % (2.0-8.0); PLATELET 244 x1000/uL (130-400); RED BLOOD CELL COUNT 3.41 mill/uL (4.2-5.4); RED CELL DISTRIBUTION WIDTH 16.6 % (11.6-14.6)
[2019-08-26] MEDS: SILDENAFIL CITRATE 20MG TABLET PO SCH ×3 (06:45→21:26)
[2019-08-26 07:33] LABS: CHLORIDE 102 mEq/L (98-107)
[2019-08-26 07:45] LABS: PHOSPHORUS 3.6 mg/dL (2.5-4.9)
[2019-08-26 08:04] VITALS: BP 125/59
[2019-08-26] MEDS: FLUTICASONE/VILANTEROL 200-25 BLST.W.DEV ORI SCH (08:27)
[2019-08-26] MEDS: ASPIRIN 81MG EC TABLET PO SCH (08:27)
[2019-08-26] MEDS: UMECLIDINIUM BROMIDE 1 INH BLST.W.DEV IH SCH (08:27)
[2019-08-26] MEDS: AMLODIPINE 2.5MG TABLET PO SCH ×2 (08:27→21:28)
[2019-08-26] MEDS: EZETIMIBE 10MG TABLET PO SCH (08:27)
[2019-08-26] MEDS: CLOPIDOGREL 75MG TABLET PO SCH (08:28)
[2019-08-26] MEDS: NEBIVOLOL HCL 5 MG TABLET PO SCH (08:28)
[2019-08-26] MEDS: POLYETHYLENE GLYCOL 3350 (17GM) 1 DOSE PACK PO SCH (08:29)
[2019-08-26] MEDS: HYDROCODONE/ACETAMINOPHEN 5/325MG TABLET PO PRN ×2 (11:19→17:00)
[2019-08-26] MEDS ORDERED: POTASSIUM CHLORIDE 20MEQ TABLET SR PO NR (12:46)
[2019-08-26] MEDS ORDERED: PREDNISONE 20MG TABLET PO NR (12:47)
[2019-08-26] MEDS ORDERED: ERGOCALCIFEROL 50000UNITS CAPSULE PO SCH (12:49)
[2019-08-26] MEDS: CALCIUM CARBONATE 1250MG TABLET (500MG ELEMENTAL CALCIUM) PO SCH (13:01)
[2019-08-26 20:00] VITALS: BP 138/56
[2019-08-26] MEDS: IPRATROPIUM/ALBUTEROL 0.5-3(2.5)MG/3ML NEB HHN PRN (22:35)
[2019-08-27] MEDS: GABAPENTIN 300MG CAPSULE PO SCH ×4 (05:29→22:36)
[2019-08-27] MEDS: SILDENAFIL CITRATE 20MG TABLET PO SCH ×3 (05:30→22:36)
[2019-08-27] MEDS: FUROSEMIDE 40MG TABLET PO SCH ×2 (06:03→17:27)
[2019-08-27 07:26] LABS: BASOPHILS % 0.5 % (0.0-2.0); HEMATOCRIT. 29.8 % (36.0-48.0); HEMOGLOBIN. 9.6 g/dL (12.0-16.0); LYMPHOCYTES % 15.1 % (20.0-50.0); MEAN CORPUSCULAR HEMOGLOBIN 27.4 pg (28.0-32.0); MEAN CORPUSCULAR VOLUME 85.5 fL (81.0-99.0); MEAN PLATELET VOLUME 8.3 fl (7.4-10.4); MONOCYTES % 8.4 % (2.0-8.0); PLATELET 210 x1000/uL (130-400); RED BLOOD CELL COUNT 3.49 mill/uL (4.2-5.4); RED CELL DISTRIBUTION WIDTH 16.5 % (11.6-14.6)
[2019-08-27 07:55] LABS: CHLORIDE 101 mEq/L (98-107)
[2019-08-27 07:59] VITALS: BP 124/51
[2019-08-27 08:01] LABS: PHOSPHORUS 3.5 mg/dL (2.5-4.9)
[2019-08-27] MEDS: POLYETHYLENE GLYCOL 3350 (17GM) 1 DOSE PACK PO SCH (09:00)
[2019-08-27] MEDS: AMLODIPINE 2.5MG TABLET PO SCH ×2 (09:03→22:35)
[2019-08-27] MEDS: PREDNISONE 20MG TABLET PO SCH (09:03)
[2019-08-27] MEDS: EZETIMIBE 10MG TABLET PO SCH (09:03)
[2019-08-27] MEDS: NEBIVOLOL HCL 5 MG TABLET PO SCH (09:03)
[2019-08-27] MEDS: CALCIUM CARBONATE 1250MG TABLET (500MG ELEMENTAL CALCIUM) PO SCH (09:03)
[2019-08-27] MEDS: FLUTICASONE/VILANTEROL 200-25 BLST.W.DEV ORI SCH (09:03)
[2019-08-27] MEDS: CLOPIDOGREL 75MG TABLET PO SCH (09:03)
[2019-08-27] MEDS: ASPIRIN 81MG EC TABLET PO SCH (09:03)
[2019-08-27] MEDS: UMECLIDINIUM BROMIDE 1 INH BLST.W.DEV IH SCH (09:04)
[2019-08-27] MEDS: HYDROCODONE/ACETAMINOPHEN 5/325MG TABLET PO PRN (14:06)
[2019-08-27] MEDS: POTASSIUM CHLORIDE 20MEQ/PACKET PO SCH (14:36)
[2019-08-27 20:00] VITALS: BP 120/62
[2019-08-27] MEDS: ENOXAPARIN 40MG/0.4ML SYR SUBCUT SCH (22:39)
[2019-08-27] MEDS: IPRATROPIUM/ALBUTEROL 0.5-3(2.5)MG/3ML NEB HHN PRN (23:35)
[2019-08-28] MEDS: HYDROCODONE/ACETAMINOPHEN 5/325MG TABLET PO PRN ×2 (04:01→11:09)
[2019-08-28] MEDS: GABAPENTIN 300MG CAPSULE PO SCH ×4 (05:31→21:54)
[2019-08-28] MEDS: SILDENAFIL CITRATE 20MG TABLET PO SCH ×3 (05:32→22:01)
[2019-08-28] MEDS: FUROSEMIDE 40MG TABLET PO SCH ×2 (06:13→17:56)
[2019-08-28 08:03] VITALS: BP 132/57
[2019-08-28] MEDS: NEBIVOLOL HCL 5 MG TABLET PO SCH (09:21)
[2019-08-28] MEDS: EZETIMIBE 10MG TABLET PO SCH (09:22)
[2019-08-28] MEDS: ENOXAPARIN 40MG/0.4ML SYR SUBCUT SCH (09:22)
[2019-08-28] MEDS: AMLODIPINE 2.5MG TABLET PO SCH ×2 (09:22→20:04)
[2019-08-28] MEDS: POLYETHYLENE GLYCOL 3350 (17GM) 1 DOSE PACK PO SCH (09:22)
[2019-08-28] MEDS: CALCIUM CARBONATE 1250MG TABLET (500MG ELEMENTAL CALCIUM) PO SCH (09:22)
[2019-08-28] MEDS: PREDNISONE 20MG TABLET PO SCH (09:22)
[2019-08-28] MEDS: CLOPIDOGREL 75MG TABLET PO SCH (09:22)
[2019-08-28] MEDS: ASPIRIN 81MG EC TABLET PO SCH (09:22)
[2019-08-28] MEDS: POTASSIUM CHLORIDE 20MEQ/PACKET PO SCH (09:22)
[2019-08-28] MEDS: FLUTICASONE/VILANTEROL 200-25 BLST.W.DEV ORI SCH (09:23)
[2019-08-28] MEDS: UMECLIDINIUM BROMIDE 1 INH BLST.W.DEV IH SCH (09:23)
[2019-08-28 10:36] VITALS: BP 121/48
[2019-08-28 15:08] VITALS: BP 127/53
[2019-08-28] MEDS ORDERED: POTASSIUM CHLORIDE 20MEQ TABLET SR PO NR (15:15)
[2019-08-28] MEDS ORDERED: METOLAZONE 2.5MG TABLET PO NR (15:15)
[2019-08-28] MEDS: IPRATROPIUM/ALBUTEROL 0.5-3(2.5)MG/3ML NEB HHN PRN ×2 (17:28→21:03)
[2019-08-28 20:00] VITALS: BP 124/48
[2019-08-28] MEDS: ACETAMINOPHEN 325MG TABLET PO PRN (20:04)
[2019-08-28] MEDS ORDERED: METHOTREXATE SODIUM 2 . 5MG TABLET PO SCH (21:15)
[2019-08-28] MEDS: GUAIFENESIN 200MG/10ML SUGAR FREE UDC PO PRN (21:54)
[2019-08-28] MEDS: FOLIC ACID 1MG TABLET PO SCH (21:55)
[2019-08-29] MEDS: ACETAMINOPHEN 325MG TABLET PO PRN ×2 (02:07→21:47)
[2019-08-29] MEDS: HYDROCODONE/ACETAMINOPHEN 5/325MG TABLET PO PRN ×2 (03:48→09:21)
[2019-08-29] MEDS: SILDENAFIL CITRATE 20MG TABLET PO SCH ×3 (06:33→21:46)
[2019-08-29] MEDS: FUROSEMIDE 40MG TABLET PO SCH ×2 (06:33→16:28)
[2019-08-29] MEDS: GABAPENTIN 300MG CAPSULE PO SCH ×4 (06:34→21:48)
[2019-08-29 07:30] LABS: CHLORIDE 100 mEq/L (98-107)
[2019-08-29 07:37] LABS: PHOSPHORUS 3.4 mg/dL (2.5-4.9)
[2019-08-29 07:39] VITALS: BP 124/56
[2019-08-29 07:41] LABS: BASOPHILS % 0.4 % (0.0-2.0); EOSINOPHILS % 0.1 % (0.0-5.0); LYMPHOCYTES % 17.4 % (20.0-50.0); MEAN CORPUSCULAR HEMOGLOBIN 27.8 pg (28.0-32.0); MEAN CORPUSCULAR VOLUME 86.2 fL (81.0-99.0); MEAN PLATELET VOLUME 8.6 fl (7.4-10.4); MONOCYTES % 11.2 % (2.0-8.0); NEUTROPHILS % 70.9 % (40.0-76.0); PLATELET 225 x1000/uL (130-400); RED CELL DISTRIBUTION WIDTH 16.8 % (11.6-14.6)
[2019-08-29] MEDS: ASPIRIN 81MG EC TABLET PO SCH (08:35)
[2019-08-29] MEDS: NEBIVOLOL HCL 5 MG TABLET PO SCH (08:36)
[2019-08-29] MEDS: AMLODIPINE 2.5MG TABLET PO SCH ×2 (08:36→21:48)
[2019-08-29] MEDS: CLOPIDOGREL 75MG TABLET PO SCH (08:36)
[2019-08-29] MEDS: FOLIC ACID 1MG TABLET PO SCH (08:36)
[2019-08-29] MEDS: EZETIMIBE 10MG TABLET PO SCH (08:36)
[2019-08-29] MEDS: PREDNISONE 20MG TABLET PO SCH (08:36)
[2019-08-29] MEDS: CALCIUM CARBONATE 1250MG TABLET (500MG ELEMENTAL CALCIUM) PO SCH (08:36)
[2019-08-29] MEDS: POTASSIUM CHLORIDE 20MEQ/PACKET PO SCH (08:36)
[2019-08-29] MEDS: ENOXAPARIN 40MG/0.4ML SYR SUBCUT SCH (08:37)
[2019-08-29] MEDS: UMECLIDINIUM BROMIDE 1 INH BLST.W.DEV IH SCH (08:39)
[2019-08-29] MEDS: FLUTICASONE/VILANTEROL 200-25 BLST.W.DEV ORI SCH (08:39)
[2019-08-29] MEDS: POLYETHYLENE GLYCOL 3350 (17GM) 1 DOSE PACK PO SCH (08:40)
[2019-08-29] MEDS ORDERED: POTASSIUM CHLORIDE 20MEQ TABLET SR PO NR (09:45)
[2019-08-29 13:25] VITALS: BP 128/52
[2019-08-29 20:00] VITALS: BP 129/78
[2019-08-30] MEDS: HYDROCODONE/ACETAMINOPHEN 5/325MG TABLET PO PRN ×2 (00:33→07:22)
[2019-08-30] MEDS: FUROSEMIDE 40MG TABLET PO SCH (06:09)
[2019-08-30] MEDS: SILDENAFIL CITRATE 20MG TABLET PO SCH (06:09)
[2019-08-30] MEDS: GABAPENTIN 300MG CAPSULE PO SCH (06:10)
[2019-08-30 07:52] VITALS: BP 112/40
[2019-08-30] MEDS: FLUTICASONE/VILANTEROL 200-25 BLST.W.DEV ORI SCH (08:32)
[2019-08-30] MEDS: UMECLIDINIUM BROMIDE 1 INH BLST.W.DEV IH SCH (08:32)
[2019-08-30] MEDS: ENOXAPARIN 40MG/0.4ML SYR SUBCUT SCH (08:33)
[2019-08-30] MEDS: PREDNISONE 20MG TABLET PO SCH (08:33)
[2019-08-30] MEDS: FOLIC ACID 1MG TABLET PO SCH (08:33)
[2019-08-30] MEDS: CLOPIDOGREL 75MG TABLET PO SCH (08:33)
[2019-08-30] MEDS: EZETIMIBE 10MG TABLET PO SCH (08:33)
[2019-08-30] MEDS: ASPIRIN 81MG EC TABLET PO SCH (08:33)
[2019-08-30] MEDS: CALCIUM CARBONATE 1250MG TABLET (500MG ELEMENTAL CALCIUM) PO SCH (08:33)
[2019-08-30] MEDS: POTASSIUM CHLORIDE 20MEQ/PACKET PO SCH (08:33)
[2019-08-30] MEDS: AMLODIPINE 2.5MG TABLET PO SCH (08:33)
[2019-08-30] MEDS: NEBIVOLOL HCL 5 MG TABLET PO SCH (08:34)
[2019-08-30] MEDS: POLYETHYLENE GLYCOL 3350 (17GM) 1 DOSE PACK PO SCH (08:34)
[2019-08-30] MEDS ORDERED: EZET10TA13 PO ×2 (09:01→09:08)
[2019-08-30] MEDS ORDERED: FURO40TA5 PO ×2 (09:01→09:08)
[2019-08-30] MEDS ORDERED: ASPI-1158 PO ×2 (09:01→09:08)
[2019-08-30] MEDS ORDERED: CLOP75TA15 PO ×2 (09:01→09:08)
[2019-08-30] MEDS ORDERED: NEBI5TAB3 PO ×2 (09:01→09:08)
[2019-08-30] MEDS ORDERED: AMLO2.5T45 PO ×2 (09:01→09:08)
[2019-08-30] MEDS ORDERED: GABA-531 PO ×4 (09:01→09:08)
[2019-08-30] MEDS ORDERED: REV20 PO ×2 (09:01→09:08)
[2019-08-30] MEDS ORDERED: UMEC62.5 IH ×2 (09:01→09:08)
[2019-08-30] MEDS ORDERED: P20 PO ×2 (09:01→09:08)
[2019-08-30] MEDS ORDERED: METH2.5T PO ×2 (09:01→09:08)
[2019-08-30] MEDS ORDERED: FOLI-43 PO (09:08)
[2019-08-30] MEDS ORDERED: FLUT1BLS ORI (09:08)
[2019-08-30] MEDS ORDERED: CALC-25 PO (09:08)
[2019-08-30] MEDS ORDERED: METO10TA8 PO (09:11)
[2019-08-30 09:53] VITALS: BP 114/40
== END 2019-08-30 14:00 | disposition home or self-care (01) | DRG 291 ==
PROVIDERS: ADMIT Psychiatry & Neurology Neurology; ATTEND Internal Medicine
DX: I50.33 Acute on chronic diastolic (congestive) heart failure (principal); J96.01 Acute respiratory failure with hypoxia; E87.1 Hypo-osmolality and hyponatremia; E87.2 Acidosis; E44.1 Mild protein-calorie malnutrition; I11.0 Hypertensive heart disease with heart failure; I25.10 Atherosclerotic heart disease of native coronary artery without angina pectoris; D64.9 Anemia, unspecified; E78.5 Hyperlipidemia, unspecified; M06.9 Rheumatoid arthritis, unspecified; D86.9 Sarcoidosis, unspecified; E83.42 Hypomagnesemia; J44.9 Chronic obstructive pulmonary disease, unspecified; E87.5 Hyperkalemia; G47.30 Sleep apnea, unspecified; I27.20 Pulmonary hypertension, unspecified; G90.9 Disorder of the autonomic nervous system, unspecified; I49.5 Sick sinus syndrome; E87.6 Hypokalemia; I08.3 Combined rheumatic disorders of mitral, aortic and tricuspid valves; K76.0 Fatty (change of) liver, not elsewhere classified; M19.90 Unspecified osteoarthritis, unspecified site; Z91.14 Patient's other noncompliance with medication regimen; Z95.1 Presence of aortocoronary bypass graft; Z79.899 Other long term (current) drug therapy; Z95.0 Presence of cardiac pacemaker; Z98.61 Coronary angioplasty status; Z68.27 Body mass index [BMI] 27.0-27.9, adult; Z88.8 Allergy status to other drugs, medicaments and biological substances
CPT/HCPCS: 36415; 78582; 80048; 83735; 84100; 85025; 94640; 97110; 97116; 97162; 97166; 97530; 97535; A9558; J1650; J7512; J8610

== ENCOUNTER 2019-10-17 09:21 | Inpatient (IN) | payer MEDICARE, OTHER ==
[~2019-10-17] VITALS: Ht 165.1 cm; Wt 63.2 kg
[~2019-10-17 09:21] MED LIST changes: +AMLO2.5T45 PO; -AMLO5TAB88 MT; -AMLO5TAB88 PO; +ASPI-1158 PO; -ASPI-1160 PO; +CALC-25 PO; -EZET10TA13 MT; +EZET10TA13 PO; -FURO-151 MT; -GABA-290 PO; +GABA-531 PO; -METH2.5T MT; +METH2.5T PO; +METO10TA8 PO; +P20 PO; -POTA10CA42 MT; +UMEC62.5 IH
[2019-10-17] MEDS ORDERED: SODIUM CHLORIDE 0.9% 1,000 ML IV ONE ×4 (09:40→15:15)
[2019-10-17] MEDS ORDERED: KETOROLAC 30MG/ML VIAL IV STA (09:40)
[2019-10-17 10:10] LABS: HEMATOCRIT. 35.4 % (36.0-48.0); HEMOGLOBIN. 11.3 g/dL (12.0-16.0); MEAN CORPUSCULAR HEMOGLOBIN 27.2 pg (28.0-32.0); MEAN CORPUSCULAR VOLUME 85.1 fL (81.0-99.0); MEAN PLATELET VOLUME 9.3 fl (7.4-10.4); PLATELET 208 x1000/uL (130-400); RED BLOOD CELL COUNT 4.16 mill/uL (4.2-5.4); RED CELL DISTRIBUTION WIDTH 19.8 % (11.6-14.6)
[2019-10-17 10:19] LABS: INR 1.4; PROTHROMBIN TIME 15.5 sec (9.6-11.0)
[2019-10-17 10:20] LABS: CHLORIDE 103 mEq/L (98-107)
[2019-10-17 10:29] LABS: CREATINE KINASE 398 IU/L (26-192)
[2019-10-17 10:30] LABS: PLATELET ESTIMATE NORMAL
[2019-10-17] MEDS ORDERED: OXYCODONE HCL/ACETAMINOPHEN 5/325MG TABLET PO ONE (11:30)
[2019-10-17 11:39] LABS: CLARITY URINE CLEAR (CLEAR); COLOR URINE DARK YELLOW (YELLOW); KETONES URINE TRACE (NEGATIVE); LEUKOCYTE ESTERASE URINE 1+ (NEGATIVE); NITRITE URINE NEGATIVE (NEGATIVE); OCCULT BLOOD URINE NEGATIVE (NEGATIVE); PROTEIN URINE 1+ (NEGATIVE); SPECIFIC GRAVITY URINE 1.028 (1.005-1.030)
[2019-10-17] MEDS ORDERED: VANCOMYCIN 1 G PREMIX 200 ML IV ONE (12:00)
[2019-10-17] MEDS ORDERED: PIPERACILLIN/TAZ 3.375G PREMIX 50 ML IV ONE (12:00)
[2019-10-17] MEDS ORDERED: ONDANSETRON HCL 4MG/2ML INJ IV PRN (12:30)
[2019-10-17] MEDS ORDERED: PIPERACILLIN/TAZOBACTAM 3.375 G in DEXT 5% WATER 100 ML IV SCH (13:00)
[2019-10-17] MEDS ORDERED: CEFTRIAXONE 1 G PREMIX 50 ML IV SCH (13:00)
[2019-10-17] MEDS: LORAZEPAM 2MG/ML CPJ IV PRN (14:58)
[2019-10-17] MEDS ORDERED: FUROSEMIDE 40MG/4ML VIAL IVP SCH (17:00)
[2019-10-17] MEDS: ENOXAPARIN 30MG/0.3ML SYR SUBCUT SCH (22:23)
[2019-10-17 23:00] VITALS: BP 116/49
[2019-10-18] VITALS: BP 116/49
[2019-10-18] MEDS: LORAZEPAM 2MG/ML CPJ IV PRN ×2 (02:29→18:28)
[2019-10-18 04:00] VITALS: BP 116/45
[2019-10-18 07:37] LABS: BASOPHILS % 0.3 % (0.0-2.0); EOSINOPHILS % 0.2 % (0.0-5.0); HEMOGLOBIN. 10.9 g/dL (12.0-16.0); LYMPHOCYTES % 18.4 % (20.0-50.0); MEAN CORPUSCULAR HEMOGLOBIN 27.7 pg (28.0-32.0); MEAN CORPUSCULAR VOLUME 85.9 fL (81.0-99.0); MEAN PLATELET VOLUME 9.6 fl (7.4-10.4); MONOCYTES % 8.2 % (2.0-8.0); NEUTROPHILS % 72.9 % (40.0-76.0); PLATELET 204 x1000/uL (130-400); RED BLOOD CELL COUNT 3.96 mill/uL (4.2-5.4); RED CELL DISTRIBUTION WIDTH 20.3 % (11.6-14.6)
[2019-10-18 07:53] VITALS: BP 108/49
[2019-10-18 07:59] LABS: CHLORIDE 106 mEq/L (98-107)
[2019-10-18] MEDS ORDERED: MORPHINE SULFATE 2 MG/ML CPJ (NOT FOR IM USE) IV PRN (08:45)
[2019-10-18] MEDS: ASPIRIN 81MG EC TABLET PO SCH (08:48)
[2019-10-18] MEDS: CLOPIDOGREL 75MG TABLET PO SCH (08:48)
[2019-10-18] MEDS: RISPERIDONE 0.5MG TABLET PO SCH (08:48)
[2019-10-18] MEDS: CEFTRIAXONE 1 G PREMIX 50 ML IV SCH (11:09)
[2019-10-18 12:00] VITALS: BP 118/59
[2019-10-18] MEDS ORDERED: CEFTRIAXONE 1 G PREMIX 50 ML IV SCH (13:00)
[2019-10-18 16:00] VITALS: BP 128/49
[2019-10-18] MEDS: HYDROCODONE/ACETAMINOPHEN 5/325MG TABLET PO PRN (17:42)
[2019-10-18] MEDS ORDERED: FURO40TA5 MT (18:08)
[2019-10-18 20:00] VITALS: BP 102/47
[2019-10-18] MEDS: ENOXAPARIN 30MG/0.3ML SYR SUBCUT SCH (22:00)
[2019-10-18] MEDS: ACETAMINOPHEN 325MG TABLET PO PRN (22:09)
[2019-10-19] VITALS: BP 102/41
[2019-10-19 04:00] VITALS: BP 121/38
[2019-10-19 06:30] LABS: CHLORIDE 105 mEq/L (98-107)
[2019-10-19 06:31] LABS: BASOPHILS % 0.3 % (0.0-2.0); EOSINOPHILS % 0.5 % (0.0-5.0); HEMATOCRIT. 34.4 % (36.0-48.0); HEMOGLOBIN. 11.1 g/dL (12.0-16.0); LYMPHOCYTES % 19.4 % (20.0-50.0); MEAN CORPUSCULAR HEMOGLOBIN 27.7 pg (28.0-32.0); MEAN CORPUSCULAR VOLUME 85.9 fL (81.0-99.0); MEAN PLATELET VOLUME 9.2 fl (7.4-10.4); MONOCYTES % 7.5 % (2.0-8.0); NEUTROPHILS % 72.3 % (40.0-76.0); PLATELET 199 x1000/uL (130-400); RED CELL DISTRIBUTION WIDTH 20.1 % (11.6-14.6)
[2019-10-19 08:00] VITALS: BP 132/53
[2019-10-19] MEDS: ASPIRIN 81MG EC TABLET PO SCH (08:56)
[2019-10-19] MEDS: CLOPIDOGREL 75MG TABLET PO SCH (08:57)
[2019-10-19] MEDS: RISPERIDONE 0.5MG TABLET PO SCH (08:57)
[2019-10-19] MEDS: HYDROCODONE/ACETAMINOPHEN 5/325MG TABLET PO PRN (09:59)
[2019-10-19] MEDS: CEFTRIAXONE 1 G PREMIX 50 ML IV SCH (10:54)
[2019-10-19] MEDS: SODIUM CHLORIDE 0.9% 1,000 ML IV SCH (12:58)
[2019-10-19] MEDS: BLOOD SUGAR DIAGNOSTIC STRIP TEST SCH ×2 (16:45→20:26)
[2019-10-19 20:00] VITALS: BP 127/49
[2019-10-19] MEDS: ENOXAPARIN 30MG/0.3ML SYR SUBCUT SCH (20:51)
[2019-10-19] MEDS: ACETAMINOPHEN 325MG TABLET PO PRN (20:52)
[2019-10-20] VITALS: BP 110/35
[2019-10-20] MEDS: HYDROCODONE/ACETAMINOPHEN 5/325MG TABLET PO PRN (01:38)
[2019-10-20 04:00] VITALS: BP 108/46
[2019-10-20] MEDS: SODIUM CHLORIDE 0.9% 1,000 ML IV SCH (06:53)
[2019-10-20] MEDS: BLOOD SUGAR DIAGNOSTIC STRIP TEST SCH ×4 (06:53→21:33)
[2019-10-20 07:09] LABS: BASOPHILS % 0.4 % (0.0-2.0); EOSINOPHILS % 0.4 % (0.0-5.0); HEMATOCRIT. 36.3 % (36.0-48.0); HEMOGLOBIN. 11.6 g/dL (12.0-16.0); LYMPHOCYTES % 23.8 % (20.0-50.0); MEAN CORPUSCULAR HEMOGLOBIN 27.9 pg (28.0-32.0); MEAN CORPUSCULAR VOLUME 86.9 fL (81.0-99.0); MONOCYTES % 9.1 % (2.0-8.0); NEUTROPHILS % 66.3 % (40.0-76.0); PLATELET 226 x1000/uL (130-400); RED BLOOD CELL COUNT 4.17 mill/uL (4.2-5.4); RED CELL DISTRIBUTION WIDTH 20.2 % (11.6-14.6)
[2019-10-20 07:22] LABS: CHLORIDE 106 mEq/L (98-107)
[2019-10-20 08:00] VITALS: BP 110/46
[2019-10-20] MEDS: RISPERIDONE 0.5MG TABLET PO SCH (09:36)
[2019-10-20] MEDS: ASPIRIN 81MG EC TABLET PO SCH (09:36)
[2019-10-20] MEDS: CLOPIDOGREL 75MG TABLET PO SCH (09:36)
[2019-10-20] MEDS: CEFTRIAXONE 1 G PREMIX 50 ML IV SCH (11:09)
[2019-10-20 12:00] VITALS: BP 100/64
[2019-10-20 16:00] VITALS: BP 116/52
[2019-10-20] MEDS: ACETAMINOPHEN 325MG TABLET PO PRN (17:55)
[2019-10-20 20:00] VITALS: BP 120/56
[2019-10-20] MEDS: ENOXAPARIN 30MG/0.3ML SYR SUBCUT SCH (21:34)
[2019-10-21] VITALS (8 sets, daily range): BP systolic 122–148; BP diastolic 48–60
[2019-10-21] MEDS: LORAZEPAM 2MG/ML CPJ IV PRN (02:50)
[2019-10-21] MEDS: BLOOD SUGAR DIAGNOSTIC STRIP TEST SCH ×3 (07:08→21:47)
[2019-10-21] MEDS: RISPERIDONE 0.5MG TABLET PO SCH (08:56)
[2019-10-21] MEDS: CLOPIDOGREL 75MG TABLET PO SCH (08:56)
[2019-10-21] MEDS: ASPIRIN 81MG EC TABLET PO SCH (08:56)
[2019-10-21] MEDS: CEFTRIAXONE 1 G PREMIX 50 ML IV SCH (08:56)
[2019-10-21] MEDS: ENOXAPARIN 30MG/0.3ML SYR SUBCUT SCH (21:46)
[2019-10-21] MEDS: SODIUM CHLORIDE 0.9% 1,000 ML IV SCH (23:55)
[2019-10-22] MEDS: HYDROCODONE/ACETAMINOPHEN 5/325MG TABLET PO PRN ×2 (00:46→06:53)
[2019-10-22 04:00] VITALS: BP 124/50
[2019-10-22] MEDS: BLOOD SUGAR DIAGNOSTIC STRIP TEST SCH ×3 (06:26→16:45)
[2019-10-22 08:00] VITALS: BP 126/62
[2019-10-22] MEDS: ASPIRIN 81MG EC TABLET PO SCH (08:29)
[2019-10-22] MEDS: RISPERIDONE 0.5MG TABLET PO SCH (08:29)
[2019-10-22] MEDS: CLOPIDOGREL 75MG TABLET PO SCH (08:29)
[2019-10-22] MEDS: LORAZEPAM 2MG/ML CPJ IV PRN (09:23)
[2019-10-22] MEDS: CEFTRIAXONE 1 G PREMIX 50 ML IV SCH (11:04)
[2019-10-22 12:00] VITALS: BP 142/58
[2019-10-22 12:30] VITALS: BP 125/68
[2019-10-22 16:00] VITALS: BP 151/64
[2019-10-22 16:52] LABS: CHLORIDE 108 mEq/L (98-107)
[2019-10-22 19:35] LABS: BASOPHILS % 0.5 % (0.0-2.0); EOSINOPHILS % 0.1 % (0.0-5.0); HEMOGLOBIN. 11.2 g/dL (12.0-16.0); LYMPHOCYTES % 21.7 % (20.0-50.0); MEAN CORPUSCULAR HEMOGLOBIN 27.5 pg (28.0-32.0); MEAN CORPUSCULAR VOLUME 85.5 fL (81.0-99.0); MEAN PLATELET VOLUME 9.1 fl (7.4-10.4); MONOCYTES % 8.1 % (2.0-8.0); NEUTROPHILS % 69.6 % (40.0-76.0); PLATELET 248 x1000/uL (130-400); RED BLOOD CELL COUNT 4.09 mill/uL (4.2-5.4); RED CELL DISTRIBUTION WIDTH 20.9 % (11.6-14.6)
[2019-10-22 20:15] LABS: VITAMIN B12 SERUM 1779 pg/mL (211-911)
== END 2019-10-22 19:17 | disposition home health service (06) | DRG 314 ==
LOC: ER 09:41 → EDBEDREQSVC 11:17 → EDBEDREQ 11:17 → EDBEDREQTM 11:17 → EDBEDREQ 11:53 → EDBEDREQTM 11:53 → ENRESERV 21:03 → 5WST 23:41
PROVIDERS: ADMIT Internal Medicine; ATTEND Internal Medicine
DX: I95.9 Hypotension, unspecified (principal); E43 Unspecified severe protein-calorie malnutrition; N39.0 Urinary tract infection, site not specified; I50.32 Chronic diastolic (congestive) heart failure; D64.9 Anemia, unspecified; E78.5 Hyperlipidemia, unspecified; E86.0 Dehydration; I08.0 Rheumatic disorders of both mitral and aortic valves; I11.0 Hypertensive heart disease with heart failure; E78.00 Pure hypercholesterolemia, unspecified; L85.3 Xerosis cutis; Z60.2 Problems related to living alone; G62.9 Polyneuropathy, unspecified; I49.5 Sick sinus syndrome; I25.10 Atherosclerotic heart disease of native coronary artery without angina pectoris; I27.20 Pulmonary hypertension, unspecified; R62.7 Adult failure to thrive; M13.0 Polyarthritis, unspecified; D86.9 Sarcoidosis, unspecified; L89.629 Pressure ulcer of left heel, unspecified stage; S81.009A Unspecified open wound, unspecified knee, initial encounter; X58.XXXA Exposure to other specified factors, initial encounter; K76.0 Fatty (change of) liver, not elsewhere classified; M06.9 Rheumatoid arthritis, unspecified; Z79.02 Long term (current) use of antithrombotics/antiplatelets; Z79.82 Long term (current) use of aspirin; Z95.0 Presence of cardiac pacemaker; Z95.1 Presence of aortocoronary bypass graft; Z68.23 Body mass index [BMI] 23.0-23.9, adult; Z88.1 Allergy status to other antibiotic agents; Z88.8 Allergy status to other drugs, medicaments and biological substances; Z79.899 Other long term (current) drug therapy; Y93.89 Activity, other specified; Y92.89 Other specified places as the place of occurrence of the external cause; Y99.8 Other external cause status
CPT/HCPCS: 36415; 71045; 80048; 80053; 81003; 82140; 82550; 82607; 82962; 83605; 84145; 84443; 84484; 85025; 93005; 97162; 97530; 99291; J0696; J1650; J1885; J2060; J2270; J2543; J3370; J7030; J7060

== ENCOUNTER 2019-10-27 17:46 | Inpatient (IN) | payer MEDICARE, OTHER ==
[~2019-10-27] VITALS: Ht 152.4 cm; Wt 88.1 kg
[2019-10-27] MEDS ORDERED: SODIUM CHLORIDE 0.9% 1,000 ML IV ONE (18:15)
[2019-10-27 19:12] LABS: BASOPHILS % 0.2 % (0.0-2.0); HEMATOCRIT. 25.3 % (36.0-48.0); HEMOGLOBIN. 8.3 g/dL (12.0-16.0); LYMPHOCYTES % 13.2 % (20.0-50.0); MEAN CORPUSCULAR HEMOGLOBIN 28.4 pg (28.0-32.0); MEAN CORPUSCULAR VOLUME 87.2 fL (81.0-99.0); MEAN PLATELET VOLUME 9.7 fl (7.4-10.4); MONOCYTES % 3.2 % (2.0-8.0); NEUTROPHILS % 83.4 % (40.0-76.0); PLATELET 181 x1000/uL (130-400); RED BLOOD CELL COUNT 2.91 mill/uL (4.2-5.4); RED CELL DISTRIBUTION WIDTH 21.1 % (11.6-14.6)
[2019-10-27 19:15] LABS: CHLORIDE 107 mEq/L (98-107)
[2019-10-27 19:17] LABS: INR 1.9; PROTHROMBIN TIME 19.4 sec (9.6-11.0)
[2019-10-27] MEDS ORDERED: ONDANSETRON HCL 4MG/2ML INJ IV STA (19:33)
[2019-10-27] MEDS ORDERED: MORPHINE SULFATE 4 MG/ML CPJ (NOT FOR IM USE) IV STA (19:33)
[2019-10-27] MEDS ORDERED: INSULIN REGULAR (HUMULIN R) 300UNITS/3ML IV ONE (20:15)
[2019-10-27] MEDS ORDERED: DEXTROSE 50% WATER 50ML SYRINGE IV ONE (20:15)
[2019-10-27] MEDS: SODIUM CHLORIDE 0.9% 1,000 ML IV SCH (21:17)
[2019-10-27] MEDS ORDERED: CLONIDINE 0.1MG TABLET PO PRN (21:30)
[2019-10-27] MEDS ORDERED: GUAIFENESIN 200MG/10ML SUGAR FREE UDC PO PRN (21:30)
[2019-10-27] MEDS ORDERED: IPRATROPIUM/ALBUTEROL 0.5-3(2.5)MG/3ML NEB HHN PRN (21:30)
[2019-10-27] MEDS ORDERED: MAGNESIUM/ALUMINUM HYDROXIDE/SIMETHICONE 30ML UDC PO PRN (21:30)
[2019-10-27] MEDS ORDERED: ACETAMINOPHEN 325MG TABLET PO PRN ×2 (21:30)
[2019-10-27] MEDS ORDERED: ONDANSETRON HCL 4MG/2ML INJ IV PRN (21:30)
[2019-10-27] MEDS ORDERED: ZOLPIDEM TARTRATE 5MG TABLET PO PRN (21:30)
[2019-10-27 21:40] VITALS: BP 104/41
[2019-10-27] MEDS ORDERED: BUDESONIDE 0.5MG/2ML NEB HHN SCH (22:00)
[2019-10-27] MEDS: DIPHENHYDRAMINE 50MG/ML VIAL IV PRN (22:30)
[2019-10-27 22:36] VITALS: BP 104/41
[2019-10-28] VITALS (7 sets, daily range): BP systolic 96–118; BP diastolic 31–53
[2019-10-28] MEDS: PANTOPRAZOLE SODIUM 40 MG/VIAL IV SCH (09:10)
[2019-10-28 10:41] LABS: HEMATOCRIT. 22.3 % (36.0-48.0); HEMOGLOBIN. 7.1 g/dL (12.0-16.0); MEAN CORPUSCULAR HEMOGLOBIN 28.6 pg (28.0-32.0); MEAN CORPUSCULAR VOLUME 89.6 fL (81.0-99.0); MEAN PLATELET VOLUME 9.4 fl (7.4-10.4); PLATELET 126 x1000/uL (130-400); RED BLOOD CELL COUNT 2.49 mill/uL (4.2-5.4); RED CELL DISTRIBUTION WIDTH 19.8 % (11.6-14.6)
[2019-10-28 16:13] LABS: PLATELET ESTIMATE SLIGHTLY DECREASED
[2019-10-28] MEDS: DIPHENHYDRAMINE 50MG/ML VIAL IV PRN (18:36)
[2019-10-28] MEDS ORDERED: SODIUM POLYSTYRENE SULFONATE 15 G/60 ML BOT PO NR (19:00)
[2019-10-28] MEDS ORDERED: SORBITOL 70% SOLN 30ML PO PRN (19:00)
[2019-10-28] MEDS: SODIUM CHLORIDE 0.9% 1,000 ML IV SCH (22:58)
[2019-10-29] VITALS: BP 114/30
[2019-10-29 00:34] VITALS: BP 120/49
[2019-10-29 01:32] VITALS: BP 110/47
[2019-10-29 04:00] VITALS: BP 131/62
[2019-10-29 08:00] VITALS: BP 100/76
[2019-10-29] MEDS: PANTOPRAZOLE SODIUM 40 MG/VIAL IV SCH (09:00)
[2019-10-29] MEDS ORDERED: PANTOPRAZOLE SODIUM 40 MG/VIAL IV SCH (09:00)
== END 2019-10-29 12:01 | disposition expired | DRG 377 ==
LOC: ER 17:46 → 8WST 20:03 → EDBEDREQ 20:05 → EDBEDREQTM 20:05 → ENRESERV 21:06
PROVIDERS: ADMIT Internal Medicine; ATTEND Internal Medicine
PROC: 30233N1 Transfusion of Nonautologous Red Blood Cells into Peripheral Vein, Percutaneous Approach (ICD-10-PCS; 2019-10-27)
PROC: 0BH17EZ Insertion of Endotracheal Airway into Trachea, Via Natural or Artificial Opening (ICD-10-PCS; principal; 2019-10-29)
PROC: 5A12012 Performance of Cardiac Output, Single, Manual (ICD-10-PCS; 2019-10-29)
PROC: 06HY33Z Insertion of Infusion Device into Lower Vein, Percutaneous Approach (ICD-10-PCS; 2019-10-29)
PROC: 5A1935Z Respiratory Ventilation, Less than 24 Consecutive Hours (ICD-10-PCS; 2019-10-29)
DX: K57.31 Diverticulosis of large intestine without perforation or abscess with bleeding (principal); L89.153 Pressure ulcer of sacral region, stage 3; E43 Unspecified severe protein-calorie malnutrition; N17.9 Acute kidney failure, unspecified; I46.9 Cardiac arrest, cause unspecified; R62.7 Adult failure to thrive; E87.5 Hyperkalemia; I11.0 Hypertensive heart disease with heart failure; I50.9 Heart failure, unspecified; I49.5 Sick sinus syndrome; K21.9 Gastro-esophageal reflux disease without esophagitis; M06.9 Rheumatoid arthritis, unspecified; E78.5 Hyperlipidemia, unspecified; D86.9 Sarcoidosis, unspecified; D64.9 Anemia, unspecified; F03.90 Unspecified dementia, unspecified severity, without behavioral disturbance, psychotic disturbance, mood disturbance, and anxiety; E78.00 Pure hypercholesterolemia, unspecified; E86.0 Dehydration; K59.00 Constipation, unspecified; I25.10 Atherosclerotic heart disease of native coronary artery without angina pectoris; Z95.1 Presence of aortocoronary bypass graft; Z95.0 Presence of cardiac pacemaker; Z95.5 Presence of coronary angioplasty implant and graft; Z79.02 Long term (current) use of antithrombotics/antiplatelets; Z79.82 Long term (current) use of aspirin; Z82.49 Family history of ischemic heart disease and other diseases of the circulatory system; Z88.1 Allergy status to other antibiotic agents; Z88.8 Allergy status to other drugs, medicaments and biological substances; Z79.899 Other long term (current) drug therapy; Z68.37 Body mass index [BMI] 37.0-37.9, adult
CPT/HCPCS: 36415; 71045; 76700; 80048; 80053; 85025; 86850; 86900; 86920; 93005; 93970; 96374; 99291; C9113; J1200; J1815; J2270; J2405; J7030; J7626; P9016